=== PATIENT | male | born 1990 | race Two or more races ===

== ENCOUNTER 2021-04-19 14:25 | Emergency (ER) | payer SELFPAY ==
[2021-04-19 14:26] VITALS: BP 149/87; PULSE 123; RESP 20; TEMP 37; O2SAT 94; BMI 33.0
--- NOTE | 2021-04-19 14:54 | HMH.EDGENADL ---
ED Disposition Instructions: DI for Acute Abdominal Pain Referrals: Provider,Presley, [Primary Care Provider] - Attestation: On 04/19/21, the high probability of a clinically significant, sudden or life threatening deterioration of the following system(s) required my full and direct attention, intervention and personal management. The time I documented below is in addition to time spent performing reported procedures but includes the following listed in this critical care notation. Medical Decision Making Vital Signs: 04/19/21 14:26 Temperature 98.6 F Temperature Source Oral Pulse Rate [Right] 123 H Respiratory Rate 20 Blood Pressure [Right Arm] 149/87 H Blood Pressure Mean [Right Arm] 107 02 Sat by Pulse Oximetry 94 L Oxygen Delivery Method Room Air Orders (Tests/Meds): ORDERS Category Date Time Status Complete Blood Count Auto Diff Stat Lab 04/19/21 14:41 Ordered Comprehensive Metabolic Panel Stat Lab 04/19/21 14:41 Ordered Lipase Stat Lab 04/19/21 14:41 Ordered General Adult HPI - General Chief complaint: Abdominal Pain Stated complaint: abd pain Time Seen by Provider: 04/19/21 14:54 Mode of Arrival: EMS Limitations: No Limitations Description of Symptoms (Recalled from ER Triage Doc. by RN): pt c/o RUQ pain x3 days, states he has been vomiting blood for the past 2 days with diarrhea x5 days. Hx cirrhosis, admits to ETOH use this morning (4 beers & whiskey) - Related Data Allergies Allergy/AdvReac Type Severity Reaction Status Date / Time No Known Allergies Allergy Verified 04/19/21 14:37 [facility] History - Hepatitis A Screen Drug use history?: No High risk sexual behaviors?: No History of sexually transmitted infection?: No Currently employed?: No Childcare worker?: No Do you have indoor plumbing?: Yes Do you have electricity?: Yes Attestation statement:: This patient has been screened for Hepatitis A risk factors.
--- NOTE | 2021-04-19 14:58 | PC.NURSE ---
PT APPROACHED NURSES STATION, STATING HE FEELS BETTER & WANTS TO GO HOME. DR. SANZ AWARE, PT SIGNED AMA PAPERWORK.
[2021-04-19 15:04] VITALS: BP 149/87; PULSE 123; RESP 18; TEMP 37; O2SAT 94
== END 2021-04-19 15:07 | disposition left against medical advice (07) ==
PROVIDERS: Emergency Provider Emergency Medicine
DX: Z53.21 Procedure and treatment not carried out due to patient leaving prior to being seen by health care provider (principal)
CPT/HCPCS: 99211

== ENCOUNTER 2021-04-21 11:40 | Emergency (ER) | payer SELFPAY ==
[2021-04-21 11:41] VITALS: BP 132/80; PULSE 130; RESP 18; TEMP 37.1; O2SAT 94; BMI 29.2
[2021-04-21 12:12] LABS: Basophils # 0.1 K/mm3 (0-0.2); Basophils % 0.9 % (0.1-2.0); Eosinophils % 0.4 % (0.1-12.0); Hematocrit 44.8 % (42.0-52.0); Hemoglobin 15.2 g/dL (14.1-18.0); Lymphocytes # 2.9 K/mm3 (0.7-4.5); Lymphocytes % 30.4 % (10-50); Mean Corpuscular HGB Conc 33.9 g/dL (31.8-35.4); Mean Corpuscular Volume 79.7 fl (80-94); Mean Platelet Volume 8.1 fl (7.4-10.4); Monocytes # 0.5 K/mm3 (0.1-1.0); Monocytes % 5.6 % (1.7-9.3); Neutrophils # 6.1 K/mm3 (1.8-7.8); Neutrophils % 62.7 % (37.0-80.0); Platelet Count 325 K/mm3 (142-424); Red Blood Count 5.62 M/mm3 (4.60-6.20); Red Cell Distribution Width 14.4 % (11.5-17.5); White Blood Count 9.7 K/mm3 (4.8-10.8)
[2021-04-21 12:13] LABS: Chloride 96 mmol/L (98-107); Sodium 140 mmol/L (136-145)
[2021-04-21 12:16] LABS: Alanine Aminotransferase 89 U/L (12-78); Alkaline Phosphatase 179 U/L (38-126); Aspartate Amino Transferase 98 U/L (17-59); Bilirubin,Total 1.4 mg/dl (0.2-1.3); Calcium 9.6 mg/dl (8.4-10.2); Carbon Dioxide 24 mmol/L (22.0-30.0); Creatinine Clearance Estimated 148 mL/min (50-200); Estimated Glomerular Filt Rate 132 ml/min (>60); GFR (African American) 160 ML/MIN (>60); Glucose 167 mg/dl (74-100); Lipase 54 U/L (23-300)
[2021-04-21 12:17] LABS: Albumin Level 5.1 g/dl (3.5-5.0); Albumin/Globulin Ratio 1.3 (1.1-1.8); Total Protein,Serum 9.1 g/dl (6.3-8.2)
[2021-04-21 12:21] LABS: Blood Urea Nitrogen < 2 mg/dl (9-20)
--- NOTE | 2021-04-21 12:21 | PC.NURSE ---
lab called with critical potassium 3.0 dr lawton notified
--- NOTE | 2021-04-21 12:23 | CT_ITS ---
PROCEDURE: CT ABDOMEN PELVIS W CON CLINICAL INDICATION: states liver hurts, h/o cirrhosis COMPARISON: No exams were available for comparison TECHNIQUE: IV Contrast: 75ML Isovue 370 Oral Contrast None Axial images obtained with sagittal and coronal reformats. All CT scans at the facility use one or more dose reduction, viz: automated exposure control, ma/kV adjustment per patient size (including targeted exams where dose is matched to indication, i.e. head), or iterative reconstruction technique. FINDINGS: LOWER THORAX: No acute finding ABDOMEN & PELVIS: Hepatomegaly 25 cm transverse and 19 cm cephalad caudad with fatty liver. No focal liver lesions evident. There has been a prior cholecystectomy. There are stones within the cystic duct remnant. No intrahepatic biliary dilatation. Common bile duct is normal in caliber. The portal vein does not appear enlarged. Varices are present which beginning in the left femoral vein area and extend along the abdominal wall superiorly to the portal area. The spleen, adrenal glands have an unremarkable appearance. A 15 mm solid-appearing nodule is noted along the lateral aspect of the head of the pancreas between the pancreatic head and the duodenum. Nonemergent MRI of the pancreas suggested for further evaluation. No evidence of acute pancreatitis. Scattered small nodes are present in the mesenteries. No renal or ureteral calculi. No hydronephrosis. No evidence of appendicitis. No intestinal obstruction or free air. No pelvic mass or abnormal fluid collection. There is a small left inguinal hernia and a small umbilical hernia containing fat. Scattered small sclerotic foci are present in the right acetabulum, right femoral head, and proximal right femur suggesting small bone islands. IMPRESSION: 1. No acute finding. 2. Hepatomegaly with varices 3. Prior cholecystectomy with stones in the cystic duct 4. 15 mm solid-appearing nodule along the lateral aspect of the pancreatic head. Nonemergent MRI of the pancreas suggested for further evaluation. Dictated by: Ming Lorenzo MD 04/21/2021 13:40 Ming Lorenzo MD in [place] 04/21/2021 13:40
[2021-04-21 12:31] LABS: Ammonia 31 umol/L (9-30)
[2021-04-21 12:33] LABS: Ethyl Alcohol 299 mg/dl (0-10)
[2021-04-21 12:35] VITALS: BP 152/85; PULSE 132; RESP 18; O2SAT 96
--- NOTE | 2021-04-21 12:35 | HMH.EDGENADL ---
ED Disposition Clinical Impression: Alcoholism, Right upper quadrant pain, Hypokalemia Cirrhosis Qualifiers: Hepatic cirrhosis type: alcoholic cirrhosis Ascites presence: without ascites Qualified Code(s): K70.30 - Alcoholic cirrhosis of liver without ascites Disposition: Home, Self-Care Condition on Discharge: Fair Instructions: DI for Alcohol Use Disorder, DI for Cirrhosis, DI for Abdominal Pain-Adult, DI for Hypokalemia Additional Instructions: Follow-up with [facility] liver clinic, call for appointment. You are being provided with a list of physicians available for follow-up of your condition. Please call a physician on this list to arrange a follow-up appointment as soon as possible. Potassium and Protonix as prescribed. Zofran as needed for nausea and vomiting. Prescriptions: Potassium Chloride [K-Tab ER 20 mEq] 20 meq PO DAILY #7 tab Prescription Printed Pantoprazole Sodium [Protonix 40mg tablet] 40 mg PO DAILY #14 tab Prescription Printed Ondansetron [Zofran 4mg ODT] 4 mg PO TIDP PRN #10 tab PRN Reason: Nausea And Vomiting Prescription Printed Referrals: Provider,Referral, MD [Primary Care Provider] - - Critical Care Critical Care Time: No Attestation: On 04/21/21, the high probability of a clinically significant, sudden or life threatening deterioration of the following system(s) required my full and direct attention, intervention and personal management. The time I documented below is in addition to time spent performing reported procedures but includes the following listed in this critical care notation. Medical Decision Making - Medical Records Medical records reviewed: Yes: I reviewed the patient's medical records. MR Comment: Reviewed [facility] records. Last visit there was admission 11/02/2020 through 11/05/2020 for cholecystitis, he had laparoscopic cholecystectomy. Noted in his records that he has a prior history of esophageal varices, status post banding. - Juan F Inquiry Pt receiving controlled substance: No Juan F was queried for this patient: Yes Vital Signs: 04/21/21 11:41 Temperature 98.8 F Temperature Source Oral Pulse Rate [Right Radial] 130 H Respiratory Rate 18 Blood Pressure [Right Arm] 132/80 Blood Pressure Mean [Right Arm] 97 Blood Pressure Source [Right Arm] Automatic Cuff Blood Pressure Position [Right Arm] Sitting 02 Sat by Pulse Oximetry 94 L Oxygen Delivery Method Room Air - Lab Data Lab Results 04/21/21 12:00: WBC 9.7, RBC 5.62, Hgb 15.2, Hct 44.8, MCV 79.7 L, MCH 27.0, MCHC 33.9, RDW 14.4, Plt Count 325, MPV 8.1, Neut % (Auto) 62.7, Lymph % (Auto) 30.4, [place] % (Auto) 5.6, Eos % (Auto) 0.4, Baso % (Auto) 0.9, Neut # (Auto) 6.1, Lymph # (Auto) 2.9, [place] # (Auto) 0.5, Eos # (Auto) 0.0, Baso # (Auto) 0.1 04/21/21 12:00: Sodium 140, Potassium 3.0 L, Chloride 96 L, Carbon Dioxide 24, Anion Gap 23.0 H, BUN < 2 L, Creatinine 0.70, Estimated Creat Clear 148, Estimated GFR 132, Est GFR ( Amer) 160, Glucose 167 H, Calcium 9.6, Total Bilirubin 1.4 H, AST 98 H, ALT 89 H, Alkaline Phosphatase 179 H, Total Protein 9.1 H, Albumin 5.1 H, Globulin 4.0 H, Albumin/Globulin Ratio 1.3, Lipase 54 04/21/21 12:00: Ammonia 31 H 04/21/21 12:00: PT 11.4, INR 0.96 04/21/21 12:00: Plasma/Serum Alcohol 299 H 04/21/21 12:00: Troponin I < 0.01 04/21/21 12:30: Stool Occult Blood Negative 04/21/21 12:35: Urine Color Yellow, Urine Appearance Clear, Urine pH 6.5, Ur Specific [place] 1.010, Urine Protein 1+, Urine Glucose (UA) Negative, Urine Ketones Negative, Urine Blood Trace-i, Urine Nitrate Negative, Urine Bilirubin Negative, Urine Urobilinogen 0.2, Ur Leukocyte Esterase Negative, Urine RBC Occasional, Urine WBC 3-5, Ur Squamous Epith Cells Occasional, Urine Bacteria None 04/21/21 13:15: SARS-CoV-2 (PCR) Not detected, Influenza A Untype (PCR) Not detected, Influenza Type B (PCR) Not detected Result diagrams: 04/21/21 12:00 04/21/21 12:00 Order
[2021-04-21 12:36] LABS: Prothrombin Time 11.4 seconds (10.1-12.5)
[2021-04-21 12:38] LABS: Occult Blood,Stool Negative (Negative)
[2021-04-21 12:41] LABS: Microscopic, Urine URINE MICROSCOPIC (MICROSCOPIC)
--- NOTE | 2021-04-21 12:41 | PC.NURSE ---
RECTAL EXAM PER DR SANZ WITH FEMALE NURSE PRESENT
[2021-04-21 12:42] LABS: INR 0.96 (0.9-1.1)
[2021-04-21 12:43] LABS: Appearance,Urine CLEAR (Clear); Bilirubin,Urine Negative (Negative); Blood, Urine TRACE-I (Negative); Color,Urine YELLOW (Yellow); Glucose,Urine (UA) Negative (Negative); Ketones,Urine Negative (Negative); Leukocyte Esterase,Urine Negative (Negative); Nitrate,Urine Negative (Negative); PH,Urine 6.5 (5.0-8.5); Protein,Urine 1+ (Negative); Urobilinogen,Urine 0.2 EU/dl (0.2)
--- NOTE | 2021-04-21 12:44 | PC.NURSE ---
PT GOING TO ct
[2021-04-21 12:51] LABS: Troponin I < 0.01 ng/ml (0.00-0.034)
[2021-04-21 12:53] LABS: RBC,Urine Occasional #/hpf (0-3); Squamous Epithelial Cell,Urine Occasional #/hpf (0-5)
[2021-04-21 13:14] VITALS: BP 108/67; PULSE 98; RESP 15; O2SAT 86
--- NOTE | 2021-04-21 13:22 | ECG_ITS ---
APPROVED REPORT Exam: Resting ECG HR:112 bpm ECG Measurements Heart Rate 112 AXES MA 130 P 49 QRSd 86 QRS 19 QT 392 T 31 QTc 535 Conclusion Sinus tachycardia Otherwise normal ECG Electronically signed by : Sumeet Mauro MD 04/25/2021 21:05:26
[2021-04-21 13:30] VITALS: BP 121/82; PULSE 105; RESP 16; O2SAT 96
[2021-04-21 13:39] LABS: Coronavirus 19, PCR Not Detected (NotDetected); Influenza A, PCR Not Detected (NotDetected); Influenza B, PCR Not Detected (NotDetected)
[2021-04-21 14:00] VITALS: BP 115/66; PULSE 113; RESP 16; O2SAT 94
[2021-04-21 15:00] VITALS: BP 115/66; PULSE 115; RESP 18; TEMP 37.1; O2SAT 96
== END 2021-04-21 15:00 | disposition home or self-care (01) ==
PROVIDERS: Emergency Provider Emergency Medicine
DX: K70.30 Alcoholic cirrhosis of liver without ascites (principal); F10.20 Alcohol dependence, uncomplicated; E87.6 Hypokalemia; Z20.822 Contact with and (suspected) exposure to COVID-19
CPT/HCPCS: 74177; 80053; 81001; 82140; 82272; 83690; 84484; 85025; 85610; 93005; 96365; 96375; 99284; G0328; J2405; Q9967; U0003

== ENCOUNTER 2021-11-09 13:24 | Observation (INO) | payer SELFPAY ==
[2021-11-09] VITALS (11 sets, daily range): BP systolic 100–130; BP diastolic 57–87; PULSE 85–99; RESP 15–18; TEMP 37.1–37.2; O2SAT 93–100; BMI 29.0
--- NOTE | 2021-11-09 16:38 | HMH.EDGENADL ---
ED Disposition Clinical Impression: Rectal bleeding, Alcoholism Hematemesis Qualifiers: Nausea presence: with nausea Qualified Code(s): K92.0 - Hematemesis Abdominal pain Qualifiers: Abdominal location: epigastric Qualified Code(s): R10.13 - Epigastric pain Alcoholic cirrhosis Qualifiers: Ascites presence: without ascites Qualified Code(s): K70.30 - Alcoholic cirrhosis of liver without ascites Disposition: Admitted as Observation Condition on Discharge: Fair Referrals: Provider,Referral, [Primary Care Provider] - - Critical Care Critical Care Time: No Attestation: On 11/09/21, the high probability of a clinically significant, sudden or life threatening deterioration of the following system(s) required my full and direct attention, intervention and personal management. The time I documented below is in addition to time spent performing reported procedures but includes the following listed in this critical care notation. Medical Decision Making - Juan F Inquiry Pt receiving controlled substance: Yes Juan F was queried for this patient: Yes Risks and benefits of using a controlled substance: were not discussed with pt by me Vital Signs: 11/09/21 16:36 11/09/21 17:00 11/09/21 18:30 Temperature 98.7 F Temperature Source Oral Pulse Rate 96 H 92 H 91 H Pulse Rate [Left Radial] 95 H Respiratory Rate 16 15 Blood Pressure 130/87 128/70 114/65 Blood Pressure [Right Arm] 128/86 Blood Pressure Mean 96 87 Blood Pressure Mean [Right Arm] 100 02 Sat by Pulse Oximetry 98 93 L 100 Oxygen Delivery Method Room Air - Lab Data Lab Results 11/09/21 16:25: WBC 10.8, RBC 5.07, Hgb 13.6 L, Hct 40.6 L, MCV 80.0, MCH 26.8 L, MCHC 33.5, RDW 15.0, Plt Count 207, MPV 9.8, Neut % (Auto) 61.4, Lymph % (Auto) 30.1, [place] % (Auto) 7.4, Eos % (Auto) 0.2, Baso % (Auto) 0.9, Neut # (Auto) 6.6, Lymph # (Auto) 3.3, [place] # (Auto) 0.8, Eos # (Auto) 0.0, Baso # (Auto) 0.1 11/09/21 16:25: Sodium 143, Potassium 3.7, Chloride 103, Carbon Dioxide 29, Anion Gap 14.7, BUN 16, Creatinine 0.70, Estimated Creat Clear 177, Estimated GFR 132, Est GFR ( Amer) 159, Glucose 94, Calcium 9.1, Total Bilirubin 1.0, Direct Bilirubin 0.3, Conjugated Bilirubin 0.0, Indirect Bilirubin 0.7, Unconjugated Bilirubin 0.6, AST 66 H, ALT 149 H, Alkaline Phosphatase 128 H, Total Protein 8.1, Albumin 4.7, Globulin 3.4 H, Albumin/Globulin Ratio 1.4 11/09/21 16:25: Lipase 73 11/09/21 16:25: PT 11.5, INR 1.02, APTT 27.3 11/09/21 16:25: Plasma/Serum Alcohol < 10 11/09/21 17:10: Stool Occult Blood Negative 11/09/21 19:30: Urine Color Yellow, Urine Appearance Clear, Urine pH 6.0, Ur Specific [place] >= 1.030, Urine Protein Negative, Urine Glucose (UA) Negative, Urine Ketones Negative, Urine Blood Negative, Urine Nitrate Negative, Urine Bilirubin Negative, Urine Urobilinogen 0.2, Ur Leukocyte Esterase Negative Result diagrams: 11/09/21 16:25 11/09/21 16:25 Orders (Tests/Meds): ED MEDICATIONS Generic Name Dose Route Start Last Admin Trade Name Freq PRN Reason Stop Dose Admin Sodium Chloride 1,000 mls @ 150 mls/hr 11/09/21 20:30 Sod Chlor 0.9% 1000ml Bag IV 12/09/21 20:29 .[id number] TEODORA Pantoprazole Sodium 40 mg 11/09/21 21:00 Pantoprazole 40mg Vial IV 12/09/21 20:59 BID TEODORA Sodium Chloride 10 ml 11/09/21 16:40 Sodium Chloride 0.9% 10ml Flush Syringe IV 12/09/21 16:39 NEEDED PRN Maintain IV Site Sodium Chloride 10 ml 11/09/21 17:53 Sodium Chloride 0.9% 10ml Vial IV 12/09/21 17:52 NEEDED PRN dilute protonix Sucralfate 1 gm 11/09/21 21:00 Sucralfate 1gm/10ml Susp Udc PO 12/09/21 20:59 ACHS TEODORA Discontinued Medications Generic Name Dose Route Start Last Admin Trade Name Freq PRN Reason Stop Dose Admin Morphine Sulfate 4 mg 11/09/21 17:52 11/09/21 18:01 Morphine 4mg/Ml Syringe IV 11/09/21 17:53 4 mg ONCE ONE Administration Ondansetron HCl 4 mg 11/09/21 1
--- NOTE | 2021-11-09 16:40 | CT_ITS ---
PROCEDURE INFORMATION: Exam: CT Abdomen And Pelvis Without Contrast Exam date and time: 11/09/2021 5:03 PM Age: 31 years old Clinical indication: Abdominal pain; Generalized; Additional info: Abd pain TECHNIQUE: Imaging protocol: Computed tomography of the abdomen and pelvis without contrast. Total images: 347 Radiation optimization: All CT scans at this facility use at least one of these dose optimization techniques: automated exposure control; mA and/or kV adjustment per patient size (includes targeted exams where dose is matched to clinical indication); or iterative reconstruction. COMPARISON: CT ABDOMEN PELVIS W CON 04/21/2021 12:52 PM FINDINGS: Lungs: Visualized lung bases are clear. Heart: Heart size normal. Mediastinal space: Slightly thickened appearance of the distal esophageal wall may relate to mild esophagitis or varices. Consider nonemergent endoscopic assessment or esophagram as clinically indicated. Liver: Slightly irregular liver contour may represent mild changes of cirrhosis. Previous hepatomegaly on 04/21/2021 has resolved, now normal size. No mass lesions. No intrahepatic biliary ductal dilatation. Gallbladder and bile ducts: Prior cholecystectomy with no significant dilatation of the common bile duct. Pancreas: Normal. No inflammatory changes or ductal dilation. Spleen: Borderline splenomegaly measuring 13.5 cm maximum dimension. Adrenal glands: Normal. No adrenal mass. Kidneys and ureters: No acute abnormalities. No hydronephrosis or hydroureter. No urinary tract stones are identified. Stomach and bowel: The stomach is largely contracted without gross abnormality. The small bowel is nondilated with no gross abnormality. No acute colonic abnormalities. Appendix: The appendix is normal in caliber and demonstrates no evidence of appendicitis. Intraperitoneal space: No free fluid or air. Vasculature: Recanalized periumbilical veins again noted with portosystemic shunting in the left inferior epigastric distribution. Small gastroesophageal varices again noted. Lymph nodes: No adenopathy. Urinary bladder: Unremarkable as visualized. Reproductive: Unremarkable as visualized. Bones/joints: No acute osseous abnormalities. Soft tissues: Small fatty umbilical hernia and small fatty left inguinal hernia. No evidence of associated bowel herniation or strangulation. IMPRESSION: 1. No acute process is evident. 2. Slight liver contour irregularity suspicious for cirrhosis. The previous hepatomegaly on 04/21/2021 has resolved, now normal size. No focal hepatic lesions. 3. Borderline splenomegaly with recanalized periumbilical veins and small gastroesophageal varices suggesting an element of chronic portal hypertension and portosystemic shunting. No ascites. 4. Mild thickening of the distal esophageal wall could relate to varices or mild changes of esophagitis, consider nonemergent endoscopic assessment or esophagram as clinically indicated. 5. Additional nonemergent findings detailed above.
[2021-11-09 16:51] LABS: Basophils # 0.1 K/mm3 (0-0.2); Basophils % 0.9 % (0.1-2.0); Eosinophils % 0.2 % (0.1-12.0); Hematocrit 40.6 % (42.0-52.0); Hemoglobin 13.6 g/dL (14.1-18.0); Lymphocytes # 3.3 K/mm3 (0.7-4.5); Lymphocytes % 30.1 % (10-50); Mean Corpuscular HGB Conc 33.5 g/dL (31.8-35.4); Mean Corpuscular Hemoglobin 26.8 pg (27.0-31.2); Mean Platelet Volume 9.8 fl (7.4-10.4); Monocytes # 0.8 K/mm3 (0.1-1.0); Monocytes % 7.4 % (1.7-9.3); Neutrophils # 6.6 K/mm3 (1.8-7.8); Neutrophils % 61.4 % (37.0-80.0); Platelet Count 207 K/mm3 (142-424); Red Blood Count 5.07 M/mm3 (4.60-6.20); White Blood Count 10.8 K/mm3 (4.8-10.8)
[2021-11-09 16:59] LABS: Activated Partial Thrombo Time 27.3 seconds (22.8-30.6); INR 1.02 (0.9-1.1); Prothrombin Time 11.5 seconds (10.1-12.5)
[2021-11-09 17:04] LABS: Alanine Aminotransferase 149 U/L (12-78); Albumin Level 4.7 g/dl (3.5-5.0); Albumin/Globulin Ratio 1.4 (1.1-1.8); Alkaline Phosphatase 128 U/L (38-126); Anion Gap 14.7 mEq/L (5-15); Aspartate Amino Transferase 66 U/L (17-59); Bilirubin,Direct 0.3 mg/dl (0.0-0.4); Bilirubin,Indirect 0.7 mg/dL (0.0-0.9); Bilirubin,Unconjugated 0.6 mg/dL (0.0-1.1); Blood Urea Nitrogen 16 mg/dl (9-20); Calcium 9.1 mg/dl (8.4-10.2); Carbon Dioxide 29 mmol/L (22.0-30.0); Chloride 103 mmol/L (98-107); Creatinine Clearance Estimated 177 mL/min (50-200); Estimated Glomerular Filt Rate 132 ml/min (>60); GFR (African American) 159 ML/MIN (>60); Globulin 3.4 g/dL (1.3-3.2); Glucose 94 mg/dl (74-100); Potassium 3.7 mmoL/L (3.5-5.1); Sodium 143 mmol/L (136-145); Total Protein,Serum 8.1 g/dl (6.3-8.2)
[2021-11-09 17:05] LABS: Lipase 73 U/L (23-300)
[2021-11-09 18:01] LABS: Ethyl Alcohol < 10 mg/dl (0-10)
[2021-11-09 18:06] LABS: Occult Blood,Stool Negative (Negative)
--- NOTE | 2021-11-09 18:10 | PC.NURSE ---
Updated pt on POC. No new needs at this time.
[2021-11-09 19:32] LABS: Microscopic, Urine URINE MICROSCOPIC (MICROSCOPIC)
--- NOTE | 2021-11-09 20:10 | PC.NURSE ---
Dr. Rangel s/w Dr. Mauro for possible admit.
--- NOTE | 2021-11-09 20:15 | PC.NURSE ---
mill platform supervisor notified on the need for bed assignment. No beds at this time, pt will be boarding in ED.
[2021-11-09 20:40] LABS: Appearance,Urine CLEAR (Clear); Bilirubin,Urine Negative (Negative); Blood, Urine Negative (Negative); Color,Urine YELLOW (Yellow); Glucose,Urine (UA) Negative (Negative); Ketones,Urine Negative (Negative); Leukocyte Esterase,Urine Negative (Negative); Nitrate,Urine Negative (Negative); Protein,Urine Negative (Negative); Specific Gravity, Urine >= 1.030 (1.005-1.030); Urobilinogen,Urine 0.2 EU/dl (0.2)
[2021-11-09 20:46] LABS: Coronavirus 19, PCR Not Detected (NotDetected); Influenza A, PCR Not Detected (NotDetected); Influenza B, PCR Not Detected (NotDetected)
[2021-11-09 20:55] LABS: Bacteria,Urine 1+ /lpf; RBC,Urine Occasional #/hpf (0-3); Squamous Epithelial Cell,Urine Occasional #/hpf (0-5)
[2021-11-09 20:59] LABS: Lactic Acid 1.1 mmol/L (0.7-2.1)
--- NOTE | 2021-11-09 21:30 | PC.NURSE ---
Pt resting comfortably, no new concerns. Comfortable at this time. Agrees with admission, pt educated he will be boarding in ED.
--- NOTE | 2021-11-09 22:46 | HMH.PHAVTE ---
[facility] Pharmacy VTE Monitoring - Patient Demographics Admission date: 11/09/21 Report Date: 11/09/21 Time: 22:46 Allergies/Adverse Reactions: Patient Allergies No Known Allergies Allergy (Verified 04/19/21 14:37) Height: 1.68 m Weight: 81.647 kg Patient Problems: Current Active Problems Abdominal pain (Acute) Alcoholism (Acute) Hematemesis (Acute) Rectal bleeding (Acute) Alcoholic cirrhosis (Acute) - VTE Risk Labs: VTE Related Lab Results Hgb 13.6 g/dL (14.1-18.0) L 11/09/21 16:25 Hct 40.6 % (42.0-52.0) L 11/09/21 16:25 Plt Count 207 K/mm3 (142-424) 11/09/21 16:25 PT 11.5 seconds (10.1-12.5) 11/09/21 16:25 INR 1.02 (0.9-1.1) 11/09/21 16:25 APTT 27.3 seconds (22.8-30.6) 11/09/21 16:25 BUN 16 mg/dl (9-20) 11/09/21 16:25 Creatinine 0.70 mg/dl (0.66-1.25) 11/09/21 16:25 Estimated Creat Clear 177 mL/min (50-200) 11/09/21 16:25 Clinical Trial Participant: No - Prophylaxis VTE Prophylaxis Ordered?: Yes Types of VTE Prophylaxis: TEDS Knee High
--- NOTE | 2021-11-09 23:45 | PC.NURSE ---
Pt moved from stretcher to hospital bed, and made comfortable. Emptied urinal.
--- NOTE | 2021-11-10 01:34 | PC.NURSE ---
Pt check- Pt states he is doing good . No needs at this time.
[2021-11-10 04:04] VITALS: BP 113/53; PULSE 85; O2SAT 99
--- NOTE | 2021-11-10 04:08 | PC.NURSE ---
Pt 0400 vital obtained. Pt resting well. No complaints.
[2021-11-10 05:15] LABS: Basophils # 0.1 K/mm3 (0-0.2); Basophils % 0.9 % (0.1-2.0); Eosinophils # 0.1 K/mm3 (0.0-0.4); Eosinophils % 0.8 % (0.1-12.0); Hemoglobin 12.6 g/dL (14.1-18.0); Lymphocytes # 3.6 K/mm3 (0.7-4.5); Lymphocytes % 42.4 % (10-50); Mean Corpuscular HGB Conc 33.2 g/dL (31.8-35.4); Mean Corpuscular Hemoglobin 26.9 pg (27.0-31.2); Mean Platelet Volume 9.6 fl (7.4-10.4); Monocytes # 0.5 K/mm3 (0.1-1.0); Monocytes % 5.6 % (1.7-9.3); Neutrophils # 4.3 K/mm3 (1.8-7.8); Neutrophils % 50.4 % (37.0-80.0); Platelet Count 172 K/mm3 (142-424); Red Blood Count 4.69 M/mm3 (4.60-6.20); White Blood Count 8.6 K/mm3 (4.8-10.8)
--- NOTE | 2021-11-10 05:18 | PC.NURSE ---
LABS OBTAINED. PT DENIES PAIN OR NAUSEA AT THIS TIME. NO ACUTE DISTRESS NOTED OR REPORTED.
[2021-11-10 05:23] LABS: Amphetamine/Metha Screen,Urine Negative ng/ml (<1000)
[2021-11-10 05:24] LABS: Barbiturates Screen,Urine Negative ng/ml (<200); Benzodiazepines Screen,Urine Negative ng/ml (<200)
[2021-11-10 05:25] LABS: Cannabinoid Screen,Urine Negative ng/ml (<50); Cocaine Screen,Urine Positive ng/ml (<300)
[2021-11-10 05:26] LABS: Methadone Screen,Urine Negative ng/ml (<300)
[2021-11-10 05:27] LABS: Opiate Screen,Urine Positive ng/ml (<300); Phencyclidine Screen,Urine Negative ng/ml (<25)
[2021-11-10 05:29] LABS: Anion Gap 9.6 mEq/L (5-15); Blood Urea Nitrogen 12 mg/dl (9-20); Carbon Dioxide 28 mmol/L (22.0-30.0); Chloride 106 mmol/L (98-107); Creatinine Clearance Estimated 177 mL/min (50-200); Estimated Glomerular Filt Rate 132 ml/min (>60); GFR (African American) 159 ML/MIN (>60); Glucose 100 mg/dl (74-100); Phosphorous 3.7 mg/dl (2.5-4.5); Potassium 3.6 mmoL/L (3.5-5.1); Sodium 140 mmol/L (136-145)
--- NOTE | 2021-11-10 07:50 | PC.NURSE ---
pt sleeping, breakfast tray at BS for when pt wakes up
--- NOTE | 2021-11-10 07:50 | PC.NURSE ---
pt has a tray but is sleeping
--- NOTE | 2021-11-10 08:15 | PC.NURSE ---
Spoke with Dr. Mauro regarding bed status. stated he would round in ED where patient is boarding and discharge him from there. Notified Delphine Kirkland RN
--- NOTE | 2021-11-10 08:55 | PC.NURSE ---
Dr. Mauro at
--- NOTE | 2021-11-10 09:08 | HMH.HPDC ---
General - General Admission date:: 11/09/21 Discharge date: 11/10/21 *Admission Date: 11/09/21 *Chief complaint: Abdominal pain/vomiting *History of present illness: 31-year-old male with long history of alcohol abuse and esophageal irritation and abdominal pain who was admitted at [facility] in May of last year with vomiting and hematemesis, diagnosed with portal hypertension, alcoholic cirrhosis and esophageal varices which were banded at some point last year. He has been doing well but unfortunately is continued to drink alcohol heavily and came to the emergency department with a chief complaint of abdominal pain and vomiting and is worried that his liver is hurting. He was watched in the ER, he had a lot of abdominal pain and wished to be observed, he was placed in observation status overnight. [facility] History I have reviewed the patient's past medical history: Yes Medical History: Reports:: Anxiety *Have you ever received a pneumonia vaccine?: No *Have you received a flu vaccine this season?: No Comment:: Chronic alcoholism. Esophagitis. Portal hypertension. Liver cirrhosis. History of esophageal varices - *Social History Last grade of school completed: High school graduate Smoking Status: Light tobacco smoker Alcohol Intake: current Alcohol Intake Frequency:: 3 or more drinks per day Substance Use Type: denies use *Occupational Status:: employed *Travel in the last 8 weeks: None Family Hx:: Unable to obtain Review of Systems - Review of Systems Review of systems:: pertinent systems reviewed and negative unless documented below Exam Vital signs and Labs for Last 24 Hours: Temp Pulse Resp BP Pulse Ox 98.9 F 85 18 113/53 L 99 11/09/21 19:01 11/10/21 04:04 11/09/21 20:00 11/10/21 04:04 11/10/21 04:04 Laboratory Results - last 24 hr 11/09/21 16:25: WBC 10.8, RBC 5.07, Hgb 13.6 L, Hct 40.6 L, MCV 80.0, MCH 26.8 L, MCHC 33.5, RDW 15.0, Plt Count 207, MPV 9.8, Neut % (Auto) 61.4, Lymph % (Auto) 30.1, [place] % (Auto) 7.4, Eos % (Auto) 0.2, Baso % (Auto) 0.9, Neut # (Auto) 6.6, Lymph # (Auto) 3.3, [place] # (Auto) 0.8, Eos # (Auto) 0.0, Baso # (Auto) 0.1 11/09/21 16:25: Sodium 143, Potassium 3.7, Chloride 103, Carbon Dioxide 29, Anion Gap 14.7, BUN 16, Creatinine 0.70, Estimated Creat Clear 177, Estimated GFR 132, Est GFR ( Amer) 159, Glucose 94, Calcium 9.1, Total Bilirubin 1.0, Direct Bilirubin 0.3, Conjugated Bilirubin 0.0, Indirect Bilirubin 0.7, Unconjugated Bilirubin 0.6, AST 66 H, ALT 149 H, Alkaline Phosphatase 128 H, Total Protein 8.1, Albumin 4.7, Globulin 3.4 H, Albumin/Globulin Ratio 1.4 11/09/21 16:25: Lipase 73 11/09/21 16:25: PT 11.5, INR 1.02, APTT 27.3 11/09/21 16:25: Plasma/Serum Alcohol < 10 11/09/21 17:10: Stool Occult Blood Negative 11/09/21 19:01: Lactate 1.1 11/09/21 19:30: Urine Color Yellow, Urine Appearance Clear, Urine pH 6.0, Ur Specific [place] >= 1.030, Urine Protein Negative, Urine Glucose (UA) Negative, Urine Ketones Negative, Urine Blood Negative, Urine Nitrate Negative, Urine Bilirubin Negative, Urine Urobilinogen 0.2, Ur Leukocyte Esterase Negative, Urine RBC Occasional, Urine WBC 3-5, Ur Squamous Epith Cells Occasional, Urine Bacteria 1+ 11/09/21 20:40: SARS-CoV-2 (PCR) Not detected, Influenza A Untype (PCR) Not detected, Influenza Type B (PCR) Not detected 11/10/21 00:00: Urine Opiates Screen Positive H, Urine Methadone Screen Negative, Ur Barbituates Screen Negative, Ur Phencyclidine Scrn Negative, Ur Amphetamines Screen Negative, U Benzodiazepines Scrn Negative, Urine Cocaine Screen Positive H, U Marijuana (THC) Screen Negative 11/10/21 05:00: WBC 8.6, RBC 4.69, Hgb 12.6 L, Hct 38.0 L, MCV 81.0, MCH 26.9 L, MCHC 33.2, RDW 15.0, Plt Count 172, MPV 9.6, Neut % (Auto) 50.4, Lymph % (Auto) 42.4, [place] % (Auto) 5.6, Eos % (Auto) 0.8, Baso % (Auto) 0.9, Neut # (Auto) 4.3, Lymph # (Auto) 3.6, [place] # (Auto) 0.5, Eos # (Auto) 0.1, Baso # (Auto) 0.1 11/10/21
--- NOTE | 2021-11-10 10:14 | PC.NURSE ---
Pharmacy at bedside
[2021-11-10 11:19] VITALS: BP 121/64; PULSE 81; RESP 17; TEMP 36.8; O2SAT 100
== END 2021-11-10 11:21 | disposition home or self-care (01) ==
LOC: ER 20:28 → 2ND 21:12
PROVIDERS: Admitting Provider Internal Medicine Adolescent Medicine; Emergency Provider Emergency Medicine; Visit Provider Internal Medicine Adolescent Medicine
DX: K70.30 Alcoholic cirrhosis of liver without ascites (principal); K92.0 Hematemesis; R10.13 Epigastric pain; Z20.822 Contact with and (suspected) exposure to COVID-19; F10.20 Alcohol dependence, uncomplicated; K76.6 Portal hypertension; Y90.0 Blood alcohol level of less than 20 mg/100 ml
CPT/HCPCS: 74176; 80048; 80053; 80076; 80305; 81001; 82272; 83605; 83690; 83735; 84100; 85025; 85610; 85730; 96365; 96366; 96375; 99285; C9803; G0328; G0378; J2405; U0003; U0005

== ENCOUNTER 2022-02-07 01:08 | Emergency (ER) | payer SELFPAY ==
[2022-02-07] VITALS (10 sets, daily range): BP systolic 108–185; BP diastolic 60–98; PULSE 89–115; RESP 18–19; TEMP 36.8–37.2; O2SAT 94–100; BMI 37.8
[2022-02-07 01:17] LABS: Appearance,Urine CLEAR (Clear); Bilirubin,Urine Negative (Negative); Blood, Urine Negative (Negative); Color,Urine YELLOW (Yellow); Glucose,Urine (UA) Negative (Negative); Ketones,Urine Negative (Negative); Leukocyte Esterase,Urine Negative (Negative); Microscopic, Urine URINE MICROSCOPIC (MICROSCOPIC); Nitrate,Urine Negative (Negative); PH,Urine 6.5 (5.0-8.5); Protein,Urine Negative (Negative); Specific Gravity, Urine <= 1.005 (1.005-1.030); Urobilinogen,Urine 0.2 EU/dl (0.2)
--- NOTE | 2022-02-07 01:26 | CT_ITS ---
PROCEDURE INFORMATION: Exam: CT Abdomen And Pelvis With Contrast Exam date and time: 02/07/2022 2:01 AM Age: 31 years old Clinical indication: Pain and condition or disease; Liver condition; Cirrhosis; Abdominal pain; Additional info: Abd pain, known cirrhosis TECHNIQUE: Imaging protocol: Computed tomography of the abdomen and pelvis with contrast. Radiation optimization: All CT scans at this facility use at least one of these dose optimization techniques: automated exposure control; mA and/or kV adjustment per patient size (includes targeted exams where dose is matched to clinical indication); or iterative reconstruction. Contrast material: ISOVUE; Contrast volume: 75 ml; Contrast route: IV; COMPARISON: CT ABDOMEN PELVIS WO CON 11/09/2021 5:03 PM FINDINGS: Liver: Nodular liver consistent with possible cirrhosis. There is diffuse low attenuation throughout the liver consistent with fatty infiltration. No masses. The liver is enlarged, measuring 19.3 cm. Gallbladder and bile ducts: The patient has had a cholecystectomy. Pancreas: Normal. No ductal dilation. Spleen: Normal. No splenomegaly. Adrenal glands: Normal. No mass. Kidneys and ureters: Normal. No hydronephrosis. Stomach and bowel: Unremarkable. No obstruction. No mucosal thickening. Appendix: No evidence of appendicitis. Intraperitoneal space: Unremarkable. No free air. No significant fluid collection. Vasculature: There has been recanalization of the umbilical vein and dilatation of the left inferior epigastric vein down to the common femoral vein. Lymph nodes: Unremarkable. No enlarged lymph nodes. Urinary bladder: Unremarkable as visualized. Reproductive: Unremarkable as visualized. Bones/joints: Unremarkable. No acute fracture. Soft tissues: There is a left inguinal hernia containing fat but no bowel. Small ventral hernia containing mesenteric fat but no bowel. IMPRESSION: Fatty liver and probable early cirrhosis with recanalization of the umbilical vein and left inferior epigastric vein. Status post cholecystectomy. Left inguinal and ventral hernias.
--- NOTE | 2022-02-07 01:28 | XR_ITS ---
PROCEDURE INFORMATION: Exam: XR Chest Exam date and time: 02/07/2022 2:19 AM Age: 31 years old Clinical indication: Cough TECHNIQUE: Imaging protocol: Radiologic exam of the chest. Views: 1 view. COMPARISON: CT ABDOMEN PELVIS W CON 02/07/2022 2:01 AM FINDINGS: Lungs: Unremarkable. No consolidation. Pleural spaces: Unremarkable. No pleural effusion. No pneumothorax. Heart/Mediastinum: Unremarkable. No cardiomegaly. Bones/joints: Unremarkable. IMPRESSION: No acute findings.
[2022-02-07 01:32] LABS: Bacteria,Urine Trace /lpf; WBC,Urine Occasional #/hpf (0-3)
[2022-02-07 01:33] LABS: Hemoglobin 14.4 g/dL (14.1-18.0); Red Blood Count 5.38 M/mm3 (4.60-6.20); White Blood Count 11.6 K/mm3 (4.8-10.8)
[2022-02-07 01:34] LABS: Basophils # 0.2 K/mm3 (0-0.2); Basophils % 1.8 % (0.1-2.0); Eosinophils # 0.1 K/mm3 (0.0-0.4); Eosinophils % 0.7 % (0.1-12.0); Hematocrit 41.7 % (42.0-52.0); Lymphocytes # 5.1 K/mm3 (0.7-4.5); Mean Corpuscular HGB Conc 34.5 g/dL (31.8-35.4); Mean Corpuscular Hemoglobin 26.7 pg (27.0-31.2); Mean Corpuscular Volume 77.6 fl (80-94); Mean Platelet Volume 8.5 fl (7.4-10.4); Monocytes # 0.7 K/mm3 (0.1-1.0); Monocytes % 5.9 % (1.7-9.3); Neutrophils # 5.5 K/mm3 (1.8-7.8); Neutrophils % 47.6 % (37.0-80.0); Platelet Count 263 K/mm3 (142-424); Red Cell Distribution Width 14.8 % (11.5-17.5)
[2022-02-07 01:42] LABS: Alanine Aminotransferase 67 U/L (12-78); Albumin Level 4.4 g/dl (3.5-5.0); Albumin/Globulin Ratio 1.3 (1.1-1.8); Alkaline Phosphatase 162 U/L (38-126); Anion Gap 18.2 mEq/L (5-15); Aspartate Amino Transferase 96 U/L (17-59); Bilirubin,Total 0.5 mg/dl (0.2-1.3); Blood Urea Nitrogen 6 mg/dl (9-20); Calcium 8.9 mg/dl (8.4-10.2); Carbon Dioxide 24 mmol/L (22.0-30.0); Chloride 101 mmol/L (98-107); Creatinine Clearance Estimated 216 mL/min (50-200); Estimated Glomerular Filt Rate 132 ml/min (>60); Ethyl Alcohol 293 mg/dl (0-10); GFR (African American) 159 ML/MIN (>60); Globulin 3.3 g/dL (1.3-3.2); Glucose 163 mg/dl (74-100); Potassium 3.2 mmoL/L (3.5-5.1); Sodium 140 mmol/L (136-145); Total Protein,Serum 7.7 g/dl (6.3-8.2)
[2022-02-07 01:47] LABS: C-Reactive Protein 3.9 mg/L (0-4)
--- NOTE | 2022-02-07 01:48 | HMH.EDNVD ---
ED Disposition Clinical Impression: Alcoholism Abdominal pain Qualifiers: Abdominal location: epigastric Qualified Code(s): R10.13 - Epigastric pain Disposition: Home, Self-Care Condition on Discharge: Fair Instructions: DI for Acute Abdominal Pain Additional Instructions: see pcp for follow up Referrals: Provider,Referral, [Primary Care Provider] - - Critical Care Critical Care Time: No Attestation: On 02/07/22, the high probability of a clinically significant, sudden or life threatening deterioration of the following system(s) required my full and direct attention, intervention and personal management. The time I documented below is in addition to time spent performing reported procedures but includes the following listed in this critical care notation. Medical Decision Making - Medical Records Medical records reviewed: Yes: I reviewed the patient's medical records. - Juan F Inquiry Pt receiving controlled substance: No Vital Signs: 02/07/22 01:09 02/07/22 01:31 02/07/22 02:33 Temperature 99 F Temperature Source Oral Pulse Rate 115 H 106 H Pulse Rate [Left Radial] 89 Respiratory Rate 18 Blood Pressure 138/60 108/74 L Blood Pressure [Right Arm] 130/88 Blood Pressure Mean [Right Arm] 102 02 Sat by Pulse Oximetry 100 100 98 Oxygen Delivery Method Room Air Room Air Room Air - Lab Data Lab results reviewed: Yes: I reviewed the patient's lab results. Lab Results 02/07/22 01:10: Urine Color Yellow, Urine Appearance Clear, Urine pH 6.5, Ur Specific [place] <= 1.005, Urine Protein Negative, Urine Glucose (UA) Negative, Urine Ketones Negative, Urine Blood Negative, Urine Nitrate Negative, Urine Bilirubin Negative, Urine Urobilinogen 0.2, Ur Leukocyte Esterase Negative, Urine WBC Occasional, Urine Bacteria Trace 02/07/22 01:26: WBC 11.6 H, RBC 5.38, Hgb 14.4, Hct 41.7 L, MCV 77.6 L, MCH 26.7 L, MCHC 34.5, RDW 14.8, Plt Count 263, MPV 8.5, Neut % (Auto) 47.6, Lymph % (Auto) 44.0, [place] % (Auto) 5.9, Eos % (Auto) 0.7, Baso % (Auto) 1.8, Neut # (Auto) 5.5, Lymph # (Auto) 5.1 H, [place] # (Auto) 0.7, Eos # (Auto) 0.1, Baso # (Auto) 0.2, ESR 13 02/07/22 01:26: Sodium 140, Potassium 3.2 L, Chloride 101, Carbon Dioxide 24, Anion Gap 18.2 H, BUN 6 L, Creatinine 0.70, Estimated Creat Clear 216, Estimated GFR 132, Est GFR ( Amer) 159, Glucose 163 H, Calcium 8.9, Total Bilirubin 0.5, AST 96 H, ALT 67, Alkaline Phosphatase 162 H, C-Reactive Protein 3.9, Total Protein 7.7, Albumin 4.4, Globulin 3.3 H, Albumin/Globulin Ratio 1.3, Procalcitonin 0.087, Salicylates < 1.0 L, Acetaminophen < 10 L 02/07/22 01:26: PT 11.4, INR 1.01 02/07/22 01:26: Ammonia 23 02/07/22 01:26: Plasma/Serum Alcohol 293 H Result diagrams: 02/07/22 01:26 02/07/22 01:26 Orders (Tests/Meds): ED MEDICATIONS Generic Name Dose Route Start Last Admin Trade Name Freq PRN Reason Stop Dose Admin Sodium Chloride 1,000 mls @ 999 mls/hr 02/07/22 01:30 02/07/22 02:57 Sod Chlor 0.9% 1000ml Bag IV 02/07/22 02:30 999 mls/hr .Q1H1M TEODORA Administration Multivitamins 10 ml/ Thiamine 1,015 mls @ 150 mls/hr 02/07/22 01:30 02/07/22 01:38 HCl 100 mg/ Magnesium Sulfate IV 02/07/22 08:15 150 mls/hr 2 gm/ Lactated Ringer's .[id number] TEODORA Administration Discontinued Medications Generic Name Dose Route Start Last Admin Trade Name Freq PRN Reason Stop Dose Admin Folic Acid 1 mg 02/07/22 01:28 02/07/22 01:39 Folic Acid 1mg Tablet PO 02/07/22 01:29 1 mg ONCE ONE Administration Iopamidol 75 ml 02/07/22 02:11 02/07/22 02:12 Iopamidol-370 (76%);100ml Bottle IV 02/07/22 02:12 75 ml ONCE ONE Administration Sodium Chloride 10 ml 02/07/22 02:11 02/07/22 02:11 Sodium Chloride 0.9% 10ml Syr (Rad Only) IV 02/07/22 02:12 10 ml ONCE ONE Administration ORDERS Category Date Time Status Lactic Acid Stat Lab 02/07/22 01:24 Ordered - Radiology Data #1 Image(s): Chest Image Reviewed: Yes I
[2022-02-07 01:51] LABS: Acetaminophen < 10 ug/ml (10-30); Salicylate < 1.0 mg/dL (2.0-20.0)
[2022-02-07 02:00] LABS: Procalcitonin 0.087 ng/mL (0.0-2.0)
[2022-02-07 02:06] LABS: Ammonia 23 umol/L (9-30)
[2022-02-07 02:11] LABS: Erythrocyte Sedimentation Rate 13 mm/hr (0-15)
[2022-02-07 02:17] LABS: INR 1.01 (0.9-1.1); Prothrombin Time 11.4 seconds (10.1-12.5)
--- NOTE | 2022-02-07 02:35 | PC.NURSE ---
PT ASSISTED WITH REPOSITIONING FOR COMFORT. URINAL EMPTIED. PT UPDATED WITH PLAN OF CARE AND WARM BLANKET PROVIDED. WILL CONTINUE TO MONITOR.
--- NOTE | 2022-02-07 03:29 | PC.NURSE ---
called radiology to check status on vrad reports
--- NOTE | 2022-02-07 04:35 | PC.NURSE ---
PT AWARE OF PLAN TO DISCHARGE AND IS UNABLE TO OBTAIN RIDE AT THIS TIME. NO COMPLAINTS VOICED. NO ACUTE DISTRESS NOTED.
== END 2022-02-07 06:32 | disposition home or self-care (01) ==
PROVIDERS: Emergency Provider Emergency Medicine
DX: F10.129 Alcohol abuse with intoxication, unspecified (principal); R10.13 Epigastric pain; F41.9 Anxiety disorder, unspecified; R11.0 Nausea; Y90.8 Blood alcohol level of 240 mg/100 ml or more
CPT/HCPCS: 71045; 74177; 80053; 80329; 81001; 82140; 84145; 85025; 85610; 85651; 86140; 96361; 96365; 96366; 99285; Q9967

== ENCOUNTER 2024-08-04 09:23 | Emergency (ER) | payer SELFPAY ==
[2024-08-04 09:35] VITALS: BP 129/82; PULSE 90; RESP 19; TEMP 37; O2SAT 98; BMI 34.9
[2024-08-04 09:54] LABS: UTC Strep Screen (Rapid) Positive (Negative)
--- NOTE | 2024-08-04 10:01 | ED_ITS ---
Discharge Plan Disposition Patient Disposition: Home, Self-Care Condition: Good Prescriptions Prescriptions: New benzonatate 100 mg capsule 100 mg PO TID PRN (Reason: cough) Qty: 30 0RF amoxicillin 875 mg tablet 875 mg PO Q12H Qty: 20 0RF No Action ondansetron 4 MG tablet,disintegrating 4 mg SL TIDP PRN (Reason: Nausea And Vomiting) 3 Days Qty: 12 0RF metformin 500 mg tablet 500 mg PO BID Patient Comments: TAKE 1 TABLET BY MOUTH TWICE DAILY WITH MEALS Referrals Follow up/Referrals: Provider,Referral, MD [Primary Care Provider] - See instructions Activity Restrictions/Add. Instructions Additional Instructions/Restrictions: *Monitor Temp, Over the counter Motrin or Tylenol as directed/as needed Tylenol every 4 hours and Motrin every 6 hours (as long as your family doctor has told you that you can take it) for fever or pain. and straight to ER if unable to lower temp less than 101.0 after medication given *Warm salt water gargles may help to soothe the throat *Throat Lozenges? *Warm fluids like tea with honey may help to soothe the throat? *Sleep elevated *Humidifier/Vaporizer *If you did not take Penicillin shot or was unable to, start taking antibiotic immediately and make sure that you take it for the FULL length of time although you should start to feel better in 24-48 hours *change toothbrush and toothpaste 24-48 hours after starting to take antibiotics so you do not reinfect yourself Monitor Temp. Tylenol and/or Ibuprofen as needed. ER if fever is no less than 101 despite alternating Tylenol and Ibuprofen * Encourage fluids, water, Gatorade, powerade, pedialyte if /toddler/or child *Cold fluids, popsicles and ice cream may feel good on his throat Follow up IMMEDIATELY for new or worsening symptoms or no Noticeable improvement over the next 48-72 hours. 911 for difficulty breathing or swallowing Clinical Impressions Clinical Impression: Strep throat Instructions Patient Instructions: DI for Strep Throat, Strep Throat Print Language Print Language: Puerto Rican Discharge ED Provider: Brianna Bonilla [facility] [place] General Stated complaint: sore throat, cough x 6 months Mode of Arrival: Ambulatory Source of Information: Patient Limitations: No Limitations Time Seen by Provider: 08/04/24 10:01 Description of Symptoms (Recalled from Triage Doc. by RN): PATIENT C/O COUGH AND SORE THROAT HEENT Symptoms (Recalled from RN notes): Yes Resp Symptoms (Recalled from RN notes): Yes Skin Symptoms (Recalled from RN notes): No MS Symptoms (Recalled from RN notes): No Functional Status (Recalled from RN notes): WNL History of Present Illness Provider Complaint: Patient states that he has been having cough and sore throat for several days and continued to get worse Related Data Home Medications ?Medication ?Instructions ?Recorded ?Confirmed metformin 500 mg tablet 500 mg PO BID 08/04/24 08/04/24 Previous Rx's ?Medication ?Instructions ?Recorded ondansetron 4 mg disintegrating 4 mg sublingual TIDP PRN Nausea 01/14/22 tablet And Vomiting 3 days #12 tabs amoxicillin 875 mg tablet 875 mg PO Q12H #20 tabs 08/04/24 benzonatate 100 mg capsule 100 mg PO TID PRN cough #30 caps 08/04/24 Allergies Allergy/AdvReac Type Severity Reaction Status Date / Time No Known Allergies Allergy Verified 08/04/24 10:00 Worker's Comp Is this a Worker's Comp case?: No [facility] Disclaimer: The information contained in this section may have been updated after the patient was seen, as this information can be updated by other users. Medical History (Updated 08/04/24 @ 10:08 by Brianna Bonilla APRN) No significant past medical history Social History (System 08/04/24 @ 10:00 by Eleonora Turner) Smoking Status: Light tobacco smoker alcohol intake: current alcohol intake frequency: 3 or more drinks per day substance use type: denies use current occupational status: employed Travel in the last 8 weeks: None Have you lived/traveled outside [place] in past 30 days?: No Contact w/someone who lives/traveled outside US past 30 days?: No Exposure to someone with infectious disease in past 14 days?: No Do you have a fever (greater than 100.4 F or 38 C)?: No Have you tested positive for COVID-19: No Exposed to someone with COVID-19 in past 14 days?: No Do you have a sore throat?: Yes Do you have a cough?: Yes Do you have any weakness?: No Do you have any diarrhea?: No Are you experiencing any unusual bleeding?: No Do you have any muscle aches/pain?: No Do you have any abdominal pain?: No Are you experiencing loss of taste or smell?: No ROS Obtained: Yes All systems reviewed & no additional complaints except as documented and Yes Systems reviewed as appropriate & no additional complaints except as documented Constitutional Constitutional: Reports system reviewed and no additional complaints, except as documented and Reports as per HPI ENT Ears, Nose, Mouth, and Throat: Reports system reviewed and no additional complaints, except as documented, Reports as per HPI and Reports sore throat Cardiovascular Cardiovascular: Reports system reviewed and no additional complaints, except as documented and Reports as per HPI Respiratory Respiratory: Reports system reviewed and no additional complaints, except as documented, Reports as per HPI and Reports cough Gastrointestinal Gastrointestingal: Reports system reviewed and no additional complaints, except as documented and as per HPI Physical Exam General General appearance: alert and in no apparent distress ENT ENT exam: Present mucous membranes moist Expanded ENT Exam Nose exam: Absent sinus tenderness Throat exam: Present tonsillar erythema and tonsillar exudate Respiratory Respiratory exam: Present normal lung sounds bilaterally; Absent respiratory distress or wheezes Cardiovascular Cardiovascular exam: Present regular rate, normal rhythm and normal heart sounds Abdominal Exam Abdominal exam: Present soft and normal bowel sounds; Absent distention or tenderness Neurological Exam Neurological exam: Present alert, oriented X3 and normal gait Medical Decision Making Medical Records Screening: Per USPSTF and CDC recommendations, given the prevalence of disease in our region, it is our hospital?s policy to screen for HIV and viral Hepatitis for all patients aged 18 and over and those with ongoing risk factors. Juan F Inquiry Pt receiving controlled substance: No Juan F was queried for this patient: No Vital Signs: 08/04/24 09:35 Temperature 98.6 F Temperature Source Oral Pulse Rate [Left Brachial] 90 Respiratory Rate 19 Blood Pressure [Left Arm] 129/82 Blood Pressure Mean [Left Arm] 97 Blood Pressure Source [Left Arm] Automatic Cuff Blood Pressure Position [Left Arm] Sitting 02 Sat by Pulse Oximetry 98 Oxygen Delivery Method Room Air Lab Data Lab results reviewed: Yes I reviewed the patient's lab results. Lab Results 08/04/24 09:40: Strep Scn [facility] Positive A
[2024-08-04 10:08] VITALS: BP 129/82; PULSE 90; RESP 19; TEMP 37; O2SAT 98
== END 2024-08-04 10:11 | disposition home or self-care (01) ==
PROVIDERS: Emergency Provider Nurse Practitioner
DX: J02.0 Streptococcal pharyngitis (principal)
CPT/HCPCS: 87880; 99213; G0381

== ENCOUNTER 2024-08-15 15:27 | Emergency (ER) | payer SELFPAY ==
[2024-08-15 16:40] VITALS: BP 108/61; PULSE 78; RESP 18; TEMP 36.8; O2SAT 99; BMI 34.1
--- NOTE | 2024-08-15 16:50 | ED_ITS ---
Discharge Plan Disposition Patient Disposition: Home, Self-Care Condition: Good Prescriptions Prescriptions: New azithromycin [Zithromax Z-Olu] 250 mg tablet See Rx Instructions .ROUTE .COMPLEX 5 Days Qty: 6 0RF Rx Instructions: For 250 mg dose pack: take 500 mg today (day 1), then 250 mg for 4 days (days 2-5) benzonatate 100 mg capsule 100 mg PO TID PRN (Reason: cough) Qty: 30 0RF Referrals Follow up/Referrals: Ai Wagoner [Primary Care Provider] - See instructions Activity Restrictions/Add. Instructions Additional Instructions/Restrictions: *Monitor Temp, Over the counter Motrin or Tylenol as directed/as needed Tylenol every 4 hours and Motrin every 6 hours (as long as your family doctor has told you that you can take it) for fever or pain. and straight to ER if unable to lower temp less than 101.0 after medication given *Warm salt water gargles may help to soothe the throat *Throat Lozenges? *Warm fluids like tea with honey may help to soothe the throat? *Sleep elevated *Humidifier/Vaporizer Your throat swab was sent for culture. Those results are typically sent to y our primary care. Be sure to follow up in 2-3 days with your family doctor/primary care physician if no improvement so they can review those result and treat if necessary. If you don?t have a primary care doctor, I recommend you get one but in the mean time, you will have to return to a walk in clinic Follow up IMMEDIATELY for new or worsening symptoms or no Noticeable improvement over the next 48-72 hours. 911 for difficulty breathing or swallowing Clinical Impressions Clinical Impression: Pharyngitis Instructions Patient Instructions: Sore Throat, Cough Print Language Print Language: Gabonese Discharge ED Provider: Brianna Bonilla [facility] [place] HPI General Stated complaint: sore throat, congestion Time Seen by Provider: 08/15/24 16:50 History of Present Illness Provider Complaint: Patient primarily Gabonese speaking but can speak limited Faroese and understand Faroese, States still having sore throat and congestion finished meds it helped but came back Related Data Previous Rx's ?Medication ?Instructions ?Recorded azithromycin 250 mg tablet See Rx Instructions PO .COMPLEX 5 08/15/24 (Zithromax Z-Olu) days #6 tabs benzonatate 100 mg capsule 100 mg PO TID PRN cough #30 caps 08/15/24 Allergies Allergy/AdvReac Type Severity Reaction Status Date / Time No Known Allergies Allergy Verified 08/04/24 10:00 [facility] Disclaimer: The information contained in this section may have been updated after the patient was seen, as this information can be updated by other users. Medical History (Updated 08/15/24 @ 17:08 by Brianna Bonilla APRN) No significant past medical history Social History (System 08/04/24 @ 10:00 by Eleonora Turner) Smoking Status: Light tobacco smoker alcohol intake: current alcohol intake frequency: 3 or more drinks per day substance use type: denies use current occupational status: employed Travel in the last 8 weeks: None Have you lived/traveled outside US in past 30 days?: No Contact w/someone who lives/traveled outside US past 30 days?: No Exposure to someone with infectious disease in past 14 days?: No Do you have a fever (greater than 100.4 F or 38 C)?: No Have you tested positive for COVID-19: No Exposed to someone with COVID-19 in past 14 days?: No Do you have a sore throat?: Yes Do you have a cough?: No Do you have any weakness?: No Do you have any diarrhea?: No Are you experiencing any unusual bleeding?: No Do you have any muscle aches/pain?: No Do you have any abdominal pain?: No Are you experiencing loss of taste or smell?: No ROS Obtained: Yes All systems reviewed & no additional complaints except as docu mented and Yes Systems reviewed as appropriate & no additional complaints except as documented Constitutional Constitutional: Reports system reviewed and no additional complaints, except as documented and Reports as per HPI ENT Ears, Nose, Mouth, and Throat: Reports system reviewed and no additional c omplaints, except as documented, Reports as per HPI, Reports nasal congestion, Reports nasal discharge and Reports sore throat Cardiovascular Cardiovascular: Reports system reviewed and no additional complaints, except as documented and Reports as per HPI Respiratory Respiratory: Reports system reviewed and no additional complaints, except as documented, Reports as per HPI and Reports cough Gastrointestinal Gastrointestingal: Reports system reviewed and no additional complaints, except as documented and as per HPI Physical Exam General General appearance: alert and in no apparent distress ENT ENT exam: Present mucous membranes moist Expanded ENT Exam Throat exam: Present tonsillar erythema Respiratory Respiratory exam: Present normal lung sounds bilaterally; Absent respiratory distress or wheezes Cardiovascular Cardiovascular exam: Present regular rate, normal rhythm and normal heart sounds Abdominal Exam Abdominal exam: Present soft and normal bowel sounds; Absent distention or tenderness Neurological Exam Neurological exam: Present alert, oriented X3 and normal gait Medical Decision Making Medical Records Screening: Per USPSTF and CDC recommendations, given the prevalence of disease in our region, it is our hospital?s policy to screen for HIV and viral Hepatitis for all patients aged 18 and over and those with ongoing risk factors. Juan F Inquiry Pt receiving controlled substance: No Juan F was queried for this patient: No Lab Data Lab results reviewed: Yes I reviewed the patient's lab results.
[2024-08-15 17:08] LABS: UTC Strep Screen (Rapid) Negative (Negative)
[2024-08-15 17:09] VITALS: BP 108/61; PULSE 78; RESP 18; TEMP 36.8; O2SAT 99
== END 2024-08-15 17:14 | disposition home or self-care (01) ==
PROVIDERS: Emergency Provider Nurse Practitioner; PCP Psychiatry & Neurology Neurology
DX: J02.9 Acute pharyngitis, unspecified (principal)
CPT/HCPCS: 87880; 99213; G0381

== ENCOUNTER 2025-08-17 08:32 | Emergency (ER) | payer SELFPAY ==
--- OUTSIDE RECORDS SUMMARY | 2025-06-29 08:20 | XMS_ITS | Encounter Summary ---
Author Organization [facility] Address [address] [place] [address] Care Team Providers Care Financial Manager Name Role Phone Ai Thomas MD Primary Care Provider [phone] Reason for Referral * Imaging (Routine) - Closed Specialty Diagnoses / Procedures Referred By Della hawthorne Referred To Contact Radiology Diagnoses Alcoholic cirrhosis of liver without ascites Gastroesophageal reflux disease without esophagitis Procedures US Liver Screen Dale Mejía PA [address] [place] [address] Phone: tel: fax: Referral ID Status Reason Start Date Expiration Date Visits Re quested Visits Authorized [id number] Closed 04/13/2025 10/13/2026 1 1 Reason for Visit * Imaging (Routine) - Closed Specialty Diagnoses / Procedures Referred By Della hawthorne Referred To Contact Radiology Diagnoses Alcoholic cirrhosis of liver without ascites Gastroesophageal reflux disease without esophagitis Procedures US Liver Screen Dale Mejía PA [address] [place] [address] Phone: tel: fax: Referral ID Status Reason Start Date Expiration Date Visits Re quested Visits Authorized [id number] Closed 04/13/2025 10/13/2026 1 1 Encounter Details Date Type Department Care Team (Latest Contact Info) Description 06/29/2025 8:20 AM EST - 06/29/2025 11:59 PM EST Hospital Encounter [facility] Ultrasound [address] [place] [phone] Alcoholic cirrhosis of liver without ascites; Gastroesophageal reflux disease without esophagitis Discharge Disposition: Home or Self Care Social History Tobacco Use Types Packs/Day Years Used Date Smoking Tobacco: Never Passive Smoke Exposure: Never Smokeless Tobacco: Never Alcohol Use Standard Drinks/Week Comments Not Currently 10 (1 standard drink = 0.6 oz pu re alcohol) pt. quit 2022. PHQ-2 Answer Date Recorded Patient Health Questionnaire-2 Score 0 04/13/2025 PHQ-9 Answer Date Recorded Patient Health Questionnaire-9 Score 0 04/13/2025 Humiliation, Afraid, Rape, and Kick questionnair e Answer Date Recorded Within the last year, have y ou been afraid of your partner or ex-partner? No 07/02/2025 Within the last year, have y ou been humiliated or emotionally abused in other ways by your partner or ex-partner? No Within the last year, have y ou been kicked, hit, slapped, or otherwise physically hurt by your partner or ex-partner? No 07/02/2025 Within the last year, have y ou been raped or forced to have any kind of sexual activity by your partner or ex-partner? No 07/02/2025 Hunger Vital Sign Answer Date Recorded Within the past 12 months, y ou worried that your food would run out before you got the money to buy more. Never true 07/02/20 25 Within the past 12 months, t he food you bought just didn't last and you didn't have money to get more. Never true 07/02/2025 PRAPARE - Transportation Answer Date Re corded In the past 12 months, has l ack of transportation kept you from medical appointments or from getting medications? No 06/20 In the past 12 months, has l ack of transportation kept you from meetings, work, or from getting things needed for daily living? No 07/02/2025 Housing Stability Vital Sign Answer Josh e Recorded In the last 12 months, was t here a time when you were not able to pay the mortgage or rent on time? No 07/02/2025 In the past 12 months, how m any times have you moved where you were living? 0 07/02/2025 At any time in the past 12 m [facility], were you homeless or living in a care home (including now)? No 07/02/2025 [facility] Utilities Answer Date Recorded In the past 12 months has th e [employer], gas, oil, or water company threatened to shut off services in your home? No 07/02/2025 CAGE ASSESSMENT Answer Date Recorded Cage unable to access Not on file 11/27/2022 Maximum number of drinks you had on a given occasion in the last month? 0 drinks 11/27/2022 How many alcoholic Beverages do you typically drink in a week? 0 - 7 per week 11/27/2022 Have you ever felt you should CUT down on your d rinking? 0 11/27/2022 Have you been ANNOYED by peo ple criticizing your drinking? 0 11/27/2022 Have you felt GUILTY about your drinking? 0 11/27/2022 Have you had a drink first t arlyn in the morning ([employer]) to steady your nerves or to get rid of a hangover? 0 11/27/2022 CAGE Questionnaire Score 0 023 PHQ-2A Answer Date Recorded Patient Health Questionnaire-2 Score 0 07/30/2023 Sex and Gender Information Value Date Recorded Sex Assigned at Not on file Legal Sex Male 6:58 PM EDT Gender Identity Not on file Sexual Orientation Not on file documented as of this encounter Medications at Time of Discharge Blood Glucose Monitoring Suppl kit Use to test blood sugar once daily before meals 1 kit 01/11/2024 fluconazole (Diflucan) 150 MG tabletIndication s:Yeast dermatitis Take 1 tablet by mouth 1 time per week. Take one tab now. Repeat in 7 days if symptoms persist. 3 tablet 1 12/25/2024 fluticasone (Flonase) 50 MCG/ACT nasal spray Administer 1 spray into each nostril daily. Shake gently. Before first use, prime pump. After use, clean tip and replace cap. 16 g 12 12/25/2024 glucose blood test strip Use to test blood sugar once daily before meals 90 each 3 01/11/2024 guaiFENesin (Mucinex) 600 MG 12 hr tablet Take 2 tablets by mouth 2 times a day. Do not crush, chew, or split. 40 tablet 1 12/25/2024 Lancets misc Use to test blood sugar once daily before meals 90 each 3 01/11/2024 metFORMIN (Glucophage) 500 MG tabletIndication s:Type 2 diabetes mellitus with other specified complication, without long-term current use of insulin Take 1 tablet by mouth 2 times a day with meals. 60 tablet 11 03/02/2025 nystatin (Mycostatin) 719250 UNIT/GM powder Apply twice daily times to affected area x 14 days 60 g 09/01/2024 pantoprazole (Protonix) 40 MG EC tablet TAKE 1 TABLET BY MOUTH ONCE DAILY *DO NOT CRUSH, CHEW, OR SPLIT* 90 tablet 1 05/19/2025 documented as of this encounter Plan of Treatment Upcoming Encounters Date Type Department Care Team (Late st Contact Info) Description 08/31/2025 10:00 AM EST Office Visit [facility] Endocrinology [address] [place] [phone] Caryn iMller PA [address] [facility] [address] [place] [phone] 10/19/2025 1:00 PM EST Office Visit [facility] Medicine Specialties [address] [place] [phone] Dale Mejía PA [address] [place] [phone] 12/31/2025 10:00 AM EDT Office Visit [facility] [address] [place] [address] Ai Thomas MD [address] [facility] [address] [place] [phone] documented as of this encounter Goals Goal Patient Goal Type Associated Problems Recent Progress Patient-Stated? Author Autogenera luigi Goal Care Plan Autogenerated Problem No Analisa Harman documented as of this encounter Procedures Procedure Name Priority Date/Time Associated Diagnosis Comments US LIVER SCREEN Routine 06/29/2025 9:06 AM EST Alcoholic cirrhosis of liver without ascites Gastroesophageal reflux disease without esophagitis documented in this encounter Results * US Liver Screen (06/29/2025 9:06 AM EST) Anatomical Region Laterality Modality Abdomen, Liver Ultrasound Impressions 06/29/2025 9:18 AM EST Mild hepatic steatosis Category Score US-1 Negative. No US evidence of HCC. No observation or Only definitely benign observation(s). Continue with regular screening. Visualization Score Vis A. No or minimal limitations. Limitations if any are unlikely to meaningfully affect sensitivity. The above scoring system and recommendations are based on Ultrasound LI-RADS version 2017. [email or web address] CRITICAL RESULT: No. COMMUNICATION: Per this written report. Drafted by Xiang Rodrigues MD on 06/29/2025 9:17 AM Final report signed by Xiang Rodrigues MD on 06/29/2025 9:18 AM Narrative 06/29/2025 9:18 AM EST CLINICAL INDICATION: liver cirrhosis; hcc surveillance TECHNIQUE: Multiplanar static and cine pinto scale ultrasound images of the abdomen were obtained, accompanied by selective color Doppler ultrasound images. COMPARISON: November 19, 2024 FINDINGS: Grayscale: Liver: There is increased echogenicity of liver. Normal echotexture. No surface nodularity is evident.. No focal liver lesion Portal Vein: There is antegrade flow within the main portal vein. Gallbladder: Prior cholecystectomy Common Duct: Nondilated measuring 3 mm Spleen: Within normal limits measuring 12.6 cm. Free Fluid: No ascites Other: N/A Procedure Note Xiang Rodrigues MD - 06/29/2025 CLINICAL INDICATION: liver cirrhosis; hcc surveillance TECHNIQUE: Multiplanar static and cine pinto scale ultrasound images of the abdomenwere obtained, accompanied by selective color Doppler ultrasound images. COMPARISON: November 19, 2024 FINDINGS: Grayscale: Liver: There is increased echogenicity of liver. Normal echotexture. Nosurface nodularity is evident.. No focal liver lesion Portal Vein: There is antegrade flow within the main portal vein. Gallbladder: Prior cholecystectomy Common Duct: Nondilated measuring 3 mm Spleen: Within normal limits measuring 12.6 cm. Free Fluid: No ascites Other: N/A IMPRESSION: Mild hepatic steatosis Category Score US-1 Negative. No US evidence of HCC. No observation orOnly definitely benign observation(s). Continue with regular screening. Visualization Score Vis A. No or minimal limitations. Limitations if anyare unlikely to meaningfully affect sensitivity. The above scoring system and recommendations are based on UltrasoundLI-RADS version 2017. [email or web address] CRITICAL RESULT: No. COMMUNICATION: Per this written report. Drafted by Xiang Rodrigues MD on 06/29/2025 9:17 AM Final report signed by Xiang Rodrigues MD on 06/29/2025 9:18 AM us Dale BALDWIN IMG US PROCEDURES Final Result documented in this encounter Visit Diagnoses Diagnosis Alcoholic cirrhosis of liver without ascites Gastroesophageal reflux disease without esophagitis Esophageal reflux documented in this encounter Additional Health Concerns Active Problems Noted Date Diagnosed Date Autogenerated Problem 11/23/2024 Assessment Noted Time PHQ-9 Depression Total Score: 0 04/13/20 2:02 PM EDT A fall risk assessment has been complete d for the patient 04/13/2025 2:02 PM EDT A Body Mass Index follow-up plan has been documented for the patient 04/22/2025 11:25 AM EDT documented as of this encounter Care Teams Financial Manager Relationship Specialty Start Date End Date Ai Thomas MD [address] [phone] PCP - General Family Medicine 02/24/21 documented as of this encounter
--- OUTSIDE RECORDS SUMMARY | 2025-07-02 09:40 | XMS_ITS | Encounter Summary ---
Author Organization [facility] Address [address] [place] [address] Care Team Providers Care Physiotherapy Aide Name Role Phone Ai Thomas MD Primary Care Provider [phone] Reason for Visit * Reason Comments Diabetes Encounter Details Date Type Department Care Team (Late st Contact Info) Description 07/02/2025 9:40 AM EST Office Visit [facility] [address] [place] [address] Ai Thomas MD [address] [place] [address] Type 2 diabetes mellitus with hyperglycemia, without long-term current use of insulin (Primary Dx); Need for influenza vaccination Social History Tobacco Use Types Packs/Day Years [...] any time in the past 12 m [facility], were you homeless or living in a prison (including now)? No 07/02/2025 [facility] Utilities Answer Date Recorded In the past 12 months has th e electric, gas, oil, or water company threatened to [...] drink first t arlyn in the morning ([employer]) to steady your nerves or to get rid of a hangover? 0 11/27/2022 CAGE Questionnaire Score 0 023 PHQ-2A Answer Date Recorded Patient Health Questionnaire-2 Score 0 07/30/2023 Sex and Gender Information Value Date Recorded Sex Assigned at Not on file Legal Sex Male 6:58 PM EDT Gender Identity Not on file Sexual Orientation Not on file documented as of this encounter Last Filed Vital Signs Vital Sign Reading Time Taken Comments Blood Pressure 115/71 07/02/2025 9:39 AM EST Pulse 75 07/02/2025 9:39 AM EST Temperature 36.7 C (98.1 F) 07/02/2025 9:39 AM EST Respiratory Rate - - Oxygen Saturation 96% 07/02/2025 9:39 AM EST Inhaled Oxygen Concentration - - Weight 95.1 kg (209 lb 10.5 oz) 07/02/2025 9:39 AM EST Height 172.7 cm (5' 8 ) 07/02/2025 9:39 AM EST Body Mass Index 31.88 07/02/2025 9:39 AM EST documented in this encounter Functional Status * BP Answer Date of Assessment Author 115/71 07/02/2025 9:39 AM EST Justine, Me keely * Temp Answer Date of Assessment Author 98.1 07/02/2025 9:39 AM EST Justine, Me keely * Pulse Answer Date of Assessment Author 75 07/02/2025 9:39 AM EST Jsutine, Me keely * SpO2 Answer Date of Assessment Author 96 07/02/2025 9:39 AM EST Justine Me keely * Height Answer Date of Assessment Author 68 07/02/2025 9:39 AM EST Justine Me keely * Weight Answer Date of Assessment Author 3354.52 07/02/2025 9:39 AM EST Justine, Me keely * BMI (Calculated) Answer Date of Assessment Author 31.9 07/02/2025 9:39 AM EST Justine Me keely * Percent Excess Weight Loss Answer Date of Assessment Author 0 07/02/2025 9:39 AM EST Justine Me keely * Total Weight Change Percent Answer Date of Assessment Author 222107/02/2025 9:39 AM EST Justine Me keely * Weight Change Since Preop Answer Date of Assessment Author 95.08 07/02/2025 9:39 AM EST Justine, Me keely * Initial Excess Weight Answer Date of Assessment Author -69.85 07/02/2025 9:39 AM EST Justine, Me keely * IBW in lbs (Bariatric) Answer Date of Assessment Author 154 07/02/2025 9:39 AM EST Justine, Me keely * Weight Change Since Last Visit Answer Date of Assessment Author 95.08 07/02/2025 9:39 AM EST Justine, Me keely * IBW in kg (Bariatric) Answer Date of Assessment Author 69.85 07/02/2025 9:39 AM EST Justine, Me keely * Percent of IBW Answer Date of Assessment Author 4,802.46 07/02/2025 9:39 AM EST Justine, Me keely * EBW (kg) Answer Date of Assessment Author 3,352.54 07/02/2025 9:39 AM EST Justine, Me keely * EBW (lbs) Answer Date of Assessment Author 3,344.9 07/02/2025 9:39 AM EST Justine, keely * Weight Change 24 hrs Answer Date of Assessment Author .298 07/02/2025 9:39 AM EST Justine, Me keely * Depression Screening Question Answer Date of Assessment Author Will the patient answer the depression risk questions? Yes 07/02/2025 9:41 AM EST Justine Eleonora * BSA (Calculated - sq m) Answer Date of Assessment Author 2.14 07/02/2025 9:39 AM EST Justine, keely * BMI (Calculated) Answer Date of Assessment Author 31.89 07/02/2025 9:39 AM EST Justine, Me keely * IBW/kg (Calculated) Male Answer Date of Assessment Author 68.4 07/02/2025 9:39 AM EST Justine, Me keely * IBW/kg (Calculated) Female Answer Date of Assessment Author 63.9 07/02/2025 9:39 AM EST Justine, Me keely * IBW/kg (Calculated) Answer Date of Assessment Author 68.4 07/02/2025 9:39 AM EST Justine, Me keely * Calculated C-SSRS Risk Score (Lifetime/Recent) Answer Date of Assessment Author No Risk Indicated 07/02/2025 9:40 AM Eleonora Smalls * Weight in (lb) to have BMI = 25 Answer Date of Assessment Author 164.1 07/02/2025 9:39 AM EST Me Justine keeyl * BMI (Calculated) Answer Date of Assessment Author 31.9 07/02/2025 9:39 AM EST Justine, keely * Percent Excess Weight Loss Answer Date of Assessment Author 0 07/02/2025 9:39 AM EST Justine, keely * Weight Change Since Preop Answer Date of Assessment Author 95.1 07/02/2025 9:39 AM EST Justine, keely * Initial Excess Weight Answer Date of Assessment Author -69.85 07/02/2025 9:39 AM EST Justine, Me keely * IBW in kg (Bariatric) Answer Date of Assessment Author 69.85 07/02/2025 9:39 AM EST Justine, Me keely * IBW in lb (Bariatric) Answer Date of Assessment Author 154 07/02/2025 9:39 AM KYARA Fletcher, keely * Weight Change Since Last Visit Answer Date of Assessment Author 95.1 07/02/2025 9:39 AM KYARA Fletcher, keely * Percent of IBW Answer Date of Assessment Author 136.14 07/02/2025 9:39 AM EST Justine, keely * EBW (kg) Answer Date of Assessment Author 25.23 07/02/2025 9:39 AM EST Justine, Me keely * EBW (lb) Answer Date of Assessment Author 55.66 07/02/2025 9:39 AM EST Justine, Me keely * Difference in Weight Since Last Visit Answer Date of Assessment Author 0.3 07/02/2025 9:39 AM EST Justine, Me keely * Temp (in Celsius) for MENOMINEE IV Answer Date of Assessment Author 36.7 07/02/2025 9:39 AM EST Justine, Me keely * IBW/kg (Calculated) Answer Date of Assessment Author 68.4 07/02/2025 9:39 AM EST Justine, Me keely * Adult Low Range Vt 6mL/kg Answer Date of Assessment Author 410.4 07/02/2025 9:39 AM EST Justine, Me keely * Adult Moderate Range Vt 8mL/kg Answer Date of Assessment Author 547.2 07/02/2025 9:39 AM EST Justine, Me keely * Adult High Range Vt 10mL/kg Answer Date of Assessment Author 684 07/02/2025 9:39 AM EST Justine, Me keely * Pain Score Answer Date of Assessment Author 0 07/02/2025 9:41 AM EST Justine, Me keely * Pain Screening/Additional Assessments Question Answer Date of Assessment Author Pain Screening/Assessments Pain Screening 07/02/2025 9 :41 AM EST Delia Fletcherissa * Pain Screening Answer Date of Assessment Author 0-10 07/02/2025 9:41 AM EST Justine, Me keely * C-SSRS (Screener) Question Answer Date of Assessment Author Is patient awake, alert, and able/willing to answer questions appropriately? Yes 07/02/2025 9:40 AM EST Justine Eleonora 1. Wish to be (Past 1 Month) No 025 9:40 AM EST Justine Eleonora 2. Non-Specific Active Suici jonna Thoughts (Past 1 Month) No 07/02/2025 9:40 AM EST Justine Eleonora 6. Suicidal Behavior (Lifetime) No 9:40 AM EST Justine Eleonora * BP Answer Date of Assessment Author 115/71 07/02/2025 9:39 AM EST Justine, Me keely * Temp Answer Date of Assessment Author 98.1 07/02/2025 9:39 AM EST Justine, Me keely * Pulse Answer Date of Assessment Author 75 07/02/2025 9:39 AM EST Justine, Me keely * SpO2 Answer Date of Assessment Author 96 07/02/2025 9:39 AM EST Justine, Me keely * Height Answer Date of Assessment Author 68 07/02/2025 9:39 AM EST Justine, Me keely * Weight Answer Date of Assessment Author 3354.52 07/02/2025 9:39 AM EST Justine, Me keely * BSA (Calculated - sq m) Answer Date of Assessment Author 2.14 07/02/2025 9:39 AM EST Justine, Me keely * BMI (Calculated) Answer Date of Assessment Author 31.89 07/02/2025 9:39 AM EST Justine, Me keely * Calculated C-SSRS Risk Score (Lifetime/Recent) Answer Date of Assessment Author No Risk Indicated 07/02/2025 9:40 AM EST Justine, Eleonora * Weight in (lb) to have BMI = 25 Answer Date of Assessment Author 164.1 07/02/2025 9:39 AM EST Justine, Me keely * Pain Score Answer Date of Assessment Author 0 07/02/2025 9:41 AM EST Justine, Me keely * C-SSRS (Screener) Question Answer Date of Assessment Author Is patient awake, alert, and able/willing to answer questions appropriately? Yes 07/02/2025 9:40 AM EST Justine, Eleonora 1. Wish to be (Past 1 Month) No 025 9:40 AM EST Justine, Eleonora 2. Non-Specific Active Suici jonna Thoughts (Past 1 Month) No 07/02/2025 9:40 AM EST Justine, Eleonora 6. Suicidal Behavior (Lifetime) No 9:40 AM EST Justine Eleonora documented as of this encounter Mental Status * BP Answer Entry Date Author 115/71 07/02/2025 9:39 AM EST Justine, Me keely * Temp Answer Entry Date Author 98.1 07/02/2025 9:39 AM EST Justine, Me keely * Pulse Answer Entry Date Author 75 07/02/2025 9:39 AM EST Justine, Me keely * SpO2 Answer Entry Date Author 96 07/02/2025 9:39 AM EST Justine, Me keely * Height Answer Entry Date Author 68 07/02/2025 9:39 AM EST Justine, Me keely * Weight Answer Entry Date Author 3354.52 07/02/2025 9:39 AM EST Justine, Me keely * BMI (Calculated) Answer Entry Date Author 31.9 07/02/2025 9:39 AM EST Justine, Me keely * Percent Excess Weight Loss Answer Entry Date Author 0 07/02/2025 9:39 AM EST Justine, Me keely * Total Weight Change Percent Answer Entry Date Author 222107/02/2025 9:39 AM EST Justine, Me keely * Weight Change Since Preop Answer Entry Date Author 95.08 07/02/2025 9:39 AM EST Justine, Me keely * Initial Excess Weight Answer Entry Date Author -69.85 07/02/2025 9:39 AM EST Justine, Me keely * IBW in lbs (Bariatric) Answer Entry Date Author 154 07/02/2025 9:39 AM EST Justine, Me keely * Weight Change Since Last Visit Answer Entry Date Author 95.08 07/02/2025 9:39 AM EST Justine, Me keely * IBW in kg (Bariatric) Answer Entry Date Author 69.85 07/02/2025 9:39 AM EST Justine, Me keely * Percent of IBW Answer Entry Date Author 4,802.46 07/02/2025 9:39 AM EST Justine, Me keely * EBW (kg) Answer Entry Date Author 3,352.54 07/02/2025 9:39 AM EST Justine, Me keely * EBW (lbs) Answer Entry Date Author 3,344.9 07/02/2025 9:39 AM EST Justine, Me keely * Weight Change 24 hrs Answer Entry Date Author .298 07/02/2025 9:39 AM EST Justine, Me keely * Depression Screening Question Answer Entry Date Author Will the patient answer the depression risk questions? Yes 07/02/2025 9:41 AM EST Justine, Eleonora * BSA (Calculated - sq m) Answer Entry Date Author 2.14 07/02/2025 9:39 AM EST Justine, Me keely * BMI (Calculated) Answer Entry Date Author 31.89 07/02/2025 9:39 AM EST Justine, Me keely * IBW/kg (Calculated) Male Answer Entry Date Author 68.4 07/02/2025 9:39 AM EST Justine, Me keely * IBW/kg (Calculated) Female Answer Entry Date Author 63.9 07/02/2025 9:39 AM EST Justine, Me keely * IBW/kg (Calculated) Answer Entry Date Author 68.4 07/02/2025 9:39 AM EST Justine, Me keely * HARK Concern Calculation Answer Entry Date Author 1 07/02/2025 9:41 AM EST Justine, Me keely * Food Insecurity Concern Calculation Answer Entry Date Author 1 07/02/2025 9:41 AM EST Justine, Me keely * Transportation Needs Concern Calculation Answer Entry Date Author 1 07/02/2025 9:41 AM EST Justine, Me keely * Housing Stability Concern Calculation Answer Entry Date Author 1 07/02/2025 9:41 AM EST Justine, Me keely * Utilities Concern Calculation Answer Entry Date Author 1 07/02/2025 9:41 AM EST Justine, Me keely * Calculated C-SSRS Risk Score (Lifetime/Recent) Answer Entry Date Author No Risk Indicated 07/02/2025 9:40 AM KYARA FletcherEleonora * Restart Pain Assessment Timer Answer Entry Date Author Yes 07/02/2025 9:41 AM EST Justine, Me keely * Weight in (lb) to have BMI = 25 Answer Entry Date Author 164.1 07/02/2025 9:39 AM EST Justine, Me keely * BMI (Calculated) Answer Entry Date Author 31.9 07/02/2025 9:39 AM EST Justine, Me keely * Percent Excess Weight Loss Answer Entry Date Author 0 07/02/2025 9:39 AM EST Justine, Me keely * Weight Change Since Preop Answer Entry Date Author 95.1 07/02/2025 9:39 AM EST Justine, Me keely * Initial Excess Weight Answer Entry Date Author -69.85 07/02/2025 9:39 AM EST Justine, Me keely * IBW in kg (Bariatric) Answer Entry Date Author 69.85 07/02/2025 9:39 AM EST Justine, Me keely * IBW in lb (Bariatric) Answer Entry Date Author 154 07/02/2025 9:39 AM EST Justine, Me keely * Weight Change Since Last Visit Answer Entry Date Author 95.1 07/02/2025 9:39 AM EST Justine, Me keely * Percent of IBW Answer Entry Date Author 136.14 07/02/2025 9:39 AM EST Justine, Me keely * EBW (kg) Answer Entry Date Author 25.23 07/02/2025 9:39 AM EST Justine, Me keely * EBW (lb) Answer Entry Date Author 55.66 07/02/2025 9:39 AM EST Justine, Me keely * Difference in Weight Since Last Visit Answer Entry Date Author 0.3 07/02/2025 9:39 AM EST Justine, Me keely * Temp (in Celsius) for MENOMINEE IV Answer Entry Date Author 36.7 07/02/2025 9:39 AM EST Justine, Me keely * IBW/kg (Calculated) Answer Entry Date Author 68.4 07/02/2025 9:39 AM EST Justine, Me keely * Adult Low Range Vt 6mL/kg Answer Entry Date Author 410.4 07/02/2025 9:39 AM EST Justine, Me keely * Adult Moderate Range Vt 8mL/kg Answer Entry Date Author 547.2 07/02/2025 9:39 AM EST Justine, Me keely * Adult High Range Vt 10mL/kg Answer Entry Date Author 684 07/02/2025 9:39 AM EST Justine, Me keely * Pain Score Answer Entry Date Author 0 07/02/2025 9:41 AM EST Justine, Me keely * Pain Screening Answer Entry Date Author 0-10 07/02/2025 9:41 AM EST Justine, Me keely * C-SSRS (Screener) Question Answer Entry Date Author Is patient awake, alert, and able/willing to answer questions appropriately? Yes 07/02/2025 9:40 AM EST Delia Fletcherissa 1. Wish to be (Past 1 Month) No 025 9:40 AM EST Justine Eleonora 2. Non-Specific Active Suici jonna Thoughts (Past 1 Month) No 07/02/2025 9:40 AM EST Justine Eleonora 6. Suicidal Behavior (Lifetime) No 9:40 AM EST Delia Fletcherissa documented in this encounter Miscellaneous Notes * Progress Notes - Ai Thomas MD - 07/02/2025 9:40 AM EST Subjective Patient ID: Dre Baez is a 35 y.o. male. Chief Complaint Patient presents with Diabetes Patient is a 35 year old male who presents today for follow up on chronic conditions. Patient is accompanied by an in person site interpreter. Patient says that he continues to take his metformin. He says that he is taking it regularly. Patient says that he has no concerns about this and he is feeling well. Patient would like his flu vaccine. The following portions of the chart were reviewed this encounter and updated as appropriate: Review of Systems Constitutional: Negative. Respiratory: Negative. Cardiovascular: Negative. Psychiatric/Behavioral: Negative. Objective Visit Vitals BP 115/71 Pulse 75 Temp 36.7 ??C (98.1 ??F) Ht 1.727 m (5' 8 ) Wt 95.1 kg (209 lb 10.5 oz) SpO2 96% BMI 31.88 kg/m?? Smoking Status Never BSA 2.14 m?? Physical Exam Constitutional: Appearance: Normal appearance. HENT: Head: Normocephalic. Cardiovascular: Rate and Rhythm: Normal rate. Pulmonary: Effort: Pulmonary effort is normal. Musculoskeletal: General: Normal range of motion. Skin: General: Skin is warm and dry. Neurological: Mental Status: He is alert. Psychiatric: Mood and Affect: Mood normal. Behavior: Behavior normal. Assessment/Plan Assessment & Plan Need for influenza vaccination Type 2 diabetes mellitus with hyperglycemia, without long-term current use of insulin Patient is a 35 year old male who presents today for follow up on: Type 2 DM - well controlled - A1c today 6.4% - will continue with Metformin 500mg BID. Dicussed with patient that if continues to trend up will need to increase his Metformin to 1000mg BID. - continue to work on diet and exercise HM - flu vaccine today RTC: 6 months for follow up on chronic conditions documented in this encounter Plan of Treatment Upcoming Encounters Date Type Department Care Team (Late st Contact Info) Description 08/31/2025 10:00 AM EST Office Visit [facility] Endocrinology [address] [place] [phone] Caryn Miller PA [address] [place] [phone] 10/19/2025 1:00 PM EST Office Visit [facility] [address] [place] [phone] Dale Mejía PA [address] [place] [phone] 12/31/2025 10:00 AM EDT Office Visit [facility] [address], [address] [place] [address] Ai Thomas MD [address] [place] [address] documented as of this encounter Goals Goal Patient Goal Type Associated Problems Recent Progress Patient-Stated? Author Autogenera luigi Goal Care Plan Autogenerated Problem No Analisa Harman documented as of this encounter Procedures Procedure Name Priority Date/Time Associated Diagnosis Comments POCT GLYCOSYLATED HEMOGLOBIN (HGB A1C) Routine 07/02/2025 9:48 AM EST documented in this encounter Results * (ABNORMAL) POCT GLYCOSYLATED HEMOGLOBIN (HGB A1C) (07/02/2025 9:48 AM EST) POCT Hemoglobin A1C 6.4(H) <5.7% Non-Diabet ic % 07/02/2025 9:56 AM EST [facility] Blood Venous blood specimen / Unknown 07/02/2025 9:48 AM EST 07/02/2025 9:56 AM EST us Ai Thomas MD LAB POINT OF CARE TE ST DOCKED DEVICE UNSOLICITED RESULTS Final Result [facility] [address] [place] [address] documented in this encounter Visit Diagnoses Diagnosis Type 2 diabetes mellitus with hyperglycemia, without long-term current use of insulin- Primary Need for influenza vaccination Need for prophylactic vaccination and inoculation against influenza documented in this encounter Additional Health Concerns Active Problems Noted Date Diagnosed Date Autogenerated Problem 11/23/2024 Assessment Noted Time PHQ-9 Depression Total Score: 0 04/13/20 2:02 PM EDT A fall risk assessment has been complete d for the patient 04/13/2025 2:02 PM EDT A Body Mass Index follow-up plan has been documented for the patient 07/02/2025 12:34 PM EST documented as of this encounter Care Teams Physiotherapy Aide Relationship Specialty Start Date End Date Ai Thomas MD [address] [id number] PCP - General Family Medicine 02/24/21 documented as of this encounter
[2025-08-17] VITALS (25 sets, daily range): BP systolic 112–153; BP diastolic 69–103; PULSE 75–111; RESP 15–17; TEMP 36.5–36.9; O2SAT 91–99; BMI 38.2
--- OUTSIDE RECORDS SUMMARY | 2025-08-17 08:43 | XMS_ITS | Clinical Summary ---
Author Organization [facility] Address [address] [place] [address] Care Team Providers Care Theoretical Physicist Name Role Phone Ai Thomas MD Primary Care Provider + [phone] Allergies No known active allergies Medications Blood Glucose Monitoring Suppl kit Use to test blood sugar once daily before meals 1 kit 4 Active glucose blood test strip Use to test blood sugar once daily before meals 90 each 3 4 Active Lancets misc Use to test blood sugar once daily before meals 90 each 3 4 Active nystatin (Mycostatin) 588364 UNIT/GM powder Apply twice daily times to affected area x 14 days 60 g 5 Active fluconazole (Diflucan) 150 MG tabletIndicatio ns:Yeast dermatitis Take 1 tablet by mouth 1 time per week. Take one tab now. Repeat in 7 days if symptoms persist. 3 tablet 1 5 Active guaiFENesin (Mucinex) 600 MG 12 hr tablet Take 2 tablets by mouth 2 times a day. Do not crush, chew, or split. 40 tablet 1 5 Active fluticasone (Flonase) 50 MCG/ACT nasal spray Administer 1 spray into each nostril daily. Shake gently. Before first use, prime pump. After use, clean tip and replace cap. 16 g 12 5 Active metFORMIN (Glucophage) 500 MG tabletIndicatio ns:Type 2 diabetes mellitus with other specified complication, without long-term current use of insulin Take 1 tablet by mouth 2 times a day with meals. 60 tablet 11 5 03/02/20 26 Active pantoprazole (Protonix) 40 MG EC tablet TAKE 1 TABLET BY MOUTH ONCE DAILY *DO NOT CRUSH, CHEW, OR SPLIT* 90 tablet 1 5 Active Active Problems Problem Noted Date Diagnosed Date Type 2 diabetes mellitus, wi thout long-term current use of insulin 03/02/2025 Allergic rhinitis 03/02/2025 Type 2 diabetes mellitus wit h hyperglycemia, without long-term current use of insulin 11/26/2023 Obesity (BMI 35.0-39.9 without comorbidity) 07/20 Gastroesophageal reflux disease without esophagi tis 11/15/2021 Cholesteatoma of left ear 07/09/2020 Alcoholic cirrhosis of liver without ascites 07/2019 Resolved Problems Problem Noted Date Diagnosed Date Resolved Date Cholelithiasis 11/28/2018 09/01/2024 Encounters Date Type Department Care Team Description 07/02/2025 9:40 AM EST Office Visit [address], [address] [place] [phone] Ai Thomas MD Type 2 diabetes mellitus with hyperglycemia, without long-term current use of insulin (Primary Dx); Need for influenza vaccination 07/02/2025 Travel 06/29/2025 8:20 AM EST - 06/29/2025 11:59 PM EST Hospital Encounter [facility] Ultrasound [address] [place] [address] Alcoholic cirrhosis of liver without ascites; Gastroesophageal reflux disease without esophagitis Discharge Disposition: Home or Self Care 06/29/2025 Travel 05/18/2025 Refill [facility] [address] [place] [address] Dale Mejía PA from Last 3 Months Immunizations Immunization Administration Dates Next Due Hep A / Hep B 09/23/2019,07/31/2019 Influenza, injectable, quadr ivalent, preservative free 09/13/2021,07/09/2020,06/10/2019 Influenza, seasonal, injecta ble, preservative free 07/02/2025,06/24/2024 Tdap 08/23/2016 Family History Medical History Relation Name Comments Diabetes Father Anesthesia problems Neg Hx Malig Hyperthermia Neg Hx Relation Name Status Comments Father Social History Tobacco Use Types Packs/Day Years Used Date Smoking Tobacco: Never Passive Smoke Exposure: Never Smokeless Tobacco: Never Tobacco Cessation:Counseling Given: Not Answered Alcohol Use Standard Drinks/Week Comments Not Currently [...] any time in the past 12 m [facility], were you homeless or living in a residential (including now)? 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 0 11/27/2022 CAGE Questionnaire Score 0 023 PHQ-2A Answer Date Recorded Patient Health Questionnaire-2 Score 0 07/30/2023 Sex and Gender Information Value Date Recorded Sex Assigned at Not on file Legal Sex Male 6:58 PM EDT Gender Identity Not on file Sexual Orientation Not on file Last Filed Vital Signs Vital Sign Reading Time Taken Comments Blood Pressure 115/71 07/02/2025 9:39 AM EST Pulse 75 07/02/2025 9:39 AM EST Temperature 36.7 C (98.1 F) 07/02/2025 9:39 AM EST Respiratory Rate 15 12/23/2024 12:5 8 PM EDT Oxygen Saturation 96% 07/02/2025 9:39 AM EST Inhaled Oxygen Concentration - - Weight 95.1 kg (209 lb 10.5 oz) 07/02/2025 9:39 AM EST Height 172.7 cm (5' 8 ) 07/02/2025 9:39 AM EST Body Mass Index 31.88 07/02/2025 9:39 AM EST Plan of Treatment Upcoming Encounters Date Type Department Care Team (Late st Contact Info) Description 08/31/2025 10:00 AM EST Office Visit [facility] [place] [address] Caryn Miller PA [address] [place] [address] 10/19/2025 1:00 PM EST Office Visit [facility] [address] [place] [address] Dale Mejía PA [address] [place] [address] 12/31/2025 10:00 AM EDT Office Visit [facility] [address] [facility], [address] [place] [address] Ai Thomas MD [address] [facility] [address] [place] [address] Health Maintenance Due Date Last Done Comments [facility]-/Child/Adol SDOH Screenings 1990 Diabetes: Dental Exam 2000 [facility]-Varicella Vaccines (1 of 2 - 13+ 2-dose series) 2003 [facility]-Pneumococcal Vaccine: Pediatrics (0 to 5 Years) and At-Risk Patients (6 to 49 Years) (1 of 2 - PCV) 2009 [facility]-Hepatitis A Vaccines (3 of 3 - Hep A Twinrix risk 3-dose series) 02/21/2020 09/23/2019, 07/31/2019 [facility]-Hepatitis B Vaccines (3 of 3 - Hep B Twinrix 3-dose series) 02/21/2020 09/23/2019, 07/31/2019 LQO-DDKAN-10 Vaccine ( - season) 2025 [facility]- SDOH Screenings 12/30/2025 [facility]-Adult SDOH Screenings 12/30/2025 07/02/2025 [facility]-Diabetes: Hemoglobin A1C 12/30/2025 07/02/2025, 12/25/2024, 06/24/2024, Additional history exists [facility]-Depression Screening 04/13/2026 04/13/2025, 03/21 [facility]-DTaP,Tdap,and Td Vaccines (2 - Td or Tdap) 08/23/2026 08/23/2016 [facility]-Zoster Vaccines (1 of 2) 2040 [facility]-HIV Screening Completed 11/12/2023, , 01/08/2020, Additional history exists [facility]-Hepatitis C Screening Completed 2023, 01/25/2022, 01/19/2020, Additional history exists [facility]-Influenza Vaccine Completed 07/02/2025 , 06/24/2024, 09/13/2021, Additional history exists [facility]-Obesity Intervention Completed 025, 04/13/2025, 03/02/2025, Additional history exists HPV Vaccines (No Doses Required) Completed [facility]-HIB Vaccines Aged Out No longer e ligible based on patient's age to complete this topic [facility]-IPV Vaccines Aged Out No longer e ligible based on patient's age to complete this topic [facility]-Rotavirus Vaccines Aged Out No lo nger eligible based on patient's age to complete this topic Goals Goal Patient Goal Type Associated Problems Recent Progress Patient-Stated? Author Autogenera luigi Goal Care Plan Autogenerated Problem No Analisa Harman Procedures Procedure Name Priority Date/Time Associated Diagnosis Comments POCT GLYCOSYLATED HEMOGLOBIN (HGB A1C) Routine 07/02/2025 9:48 AM EST US LIVER SCREEN Routine 06/29/2025 9:06 AM EST Alcoholic cirrhosis of liver without ascites Gastroesophageal reflux disease without esophagitis HEPATITIS C ANTIBODY - ED W/REFLEX TO HCV QUANT PCR STAT 11/12/2023 10:39 AM EDT ED HIV 1/2 ANTIBODY/ANTIGEN SCREEN WITH REFLEX TO HIV I/II DIFFERENTIATION STAT 11/12/2023 10:39 AM EDT from Last 3 Months or Most Recently Relevant to Health Maintenance Results * (ABNORMAL) POCT GLYCOSYLATED HEMOGLOBIN (HGB A1C) (07/02/2025 9:48 AM EST) POCT Hemoglobin A1C 6.4(H) <5.7% Non-Diabet ic % 07/02/2025 9:56 AM EST [facility] Blood Venous blood specimen / Unknown 07/02/2025 9:48 AM EST 07/02/2025 9:56 AM EST us Ai Thomas MD LAB POINT OF CARE TE ST DOCKED DEVICE UNSOLICITED RESULTS Final Result [facility] [address] [place] [address] * US Liver Screen (06/29/2025 9:06 AM [...] are based on Ultrasound LI-RADS version 2017. [email or web address] CRITICAL RESULT: No. COMMUNICATION: Per [...] recommendations are based on UltrasoundLI-RADS version 2017. [email or web address] CRITICAL RESULT: No. COMMUNICATION: Per this written report. Drafted by Xiang Rodrigues MD on 06/29/2025 9:17 AM Final report signed by Xiang Rodrigues MD on 06/29/2025 9:18 AM Dale [place] [facility] [place]EDURES Final Result * ED HIV 1/2 Antibody/Antigen Screen w/Reflex to HIV 1/2 Differentiation (11/12/2023 10:39 AM EDT) HIV 1 & 2 Antibody/Antigen Screen Non Reactive Non Reactive 11/12/2023 11:21 AM EDT [facility] Comment:Screening for HIV 1 & 2 antibodies, and P24 antigen is NONREACTIVE. No confirmatory testing is required. Blood Venous blood specimen / Unknown Venipuncture / Unknown 11/12/2023 10:39 AM EDT 11/12/2023 10:42 AM EDT us Lidia BALDWIN LAB BLOOD ORDERABLES Final Res ult Performing Organization Address [facility] Co de Phone Number [facility] [address] [place] [address] * Hepatitis C Antibody - ED (11/12/2023 10:39 AM EDT) Hepatitis C Antibody Negative Negative 11/12/2023 11:17 AM EDT [facility] Blood Venous blood specimen / Unknown Venipuncture / Unknown 11/12/2023 10:39 AM EDT 11/12/2023 10:42 AM EDT us Lidia BALDWIN LAB BLOOD ORDERABLES Final Res ult Performing Organization Address [facility] de Phone Number [facility]ALTH[facility]ARE [facility] [address] [place] [address] from Last 3 Months or Most Recently Relevant to Health Maintenance Additional Health Concerns Active Problems Noted Date Diagnosed Date Autogenerated Problem 11/23/2024 Care Teams Theoretical Physicist Relationship Specialty Start Date End Date Ai Thomas MD [address] [address] PCP - General Family Medicine 02/24/21
--- OUTSIDE RECORDS SUMMARY | 2025-08-17 08:43 | XMS_ITS | Encounter Summary ---
Author Organization [facility] Address [address] [place] [address] Care Team Providers Care Set Up / Operator Name Role Phone Ai Thomas MD Primary Care Provider + [phone] Encounter Details Date Type Department Care Team (Latest Contact Info) Description 07/02/2025 Travel Social History Tobacco Use Types Packs/Day Years [...] any time in the past 12 m [facility], were you homeless or living in a assisted (including now)? 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 0 11/27/2022 CAGE Questionnaire Score 0 023 PHQ-2A Answer Date Recorded Patient Health Questionnaire-2 Score 0 07/30/2023 Sex and Gender Information Value Date Recorded Sex Assigned at Not on file Legal Sex Male 6:58 PM EDT Gender Identity Not on file Sexual Orientation Not on file documented as of this encounter Functional Status * Communicable Disease Screening Question Answer Date of Assessment Author Have you been in contact wit h someone who was sick? No / Unsure 07/02/2025 9:26 AM Brooke Granger Do you have any of the following new or worsening symptoms? None of these 07/02/2025 9:26 AM Brooke Granger * Travel Screening Question Answer Date of Assessment Author Have you traveled [place] or domestically in the last month? No 07/02/2025 9:26 AM Brooke Granger documented as of this encounter Mental Status * Communicable Disease Screening Question Answer Entry Date Author Have you been in contact wit h someone who was sick? No / Unsure 07/02/2025 9:26 AM Brooke Granger Do you have any of the following new or worsening symptoms? None of these 07/02/2025 9:26 AM Brooke Granger * Travel Screening Question Answer Entry Date Author Have you traveled [place] or domestically in the last month? No 07/02/2025 9:26 AM Brooke Granger documented in this encounter Plan of Treatment Upcoming Encounters Date Type Department Care Team (Late st Contact Info) Description 08/31/2025 10:00 AM EST Office Visit [facility] Endocrinology [address] [place] [address] Caryn Miller PA [address] [facility] [address] [place] [address] 10/19/2025 1:00 PM EST Office Visit [facility] Medicine Specialties [address] [place] [address] Dale Mejía PA [address] [place] [address] 12/31/2025 10:00 AM EDT Office Visit [facility] [address] [place] [address] Ai Thomas MD [address] [facility] [address] [place] [address] documented as of this encounter Goals Goal Patient Goal Type Associated Problems Recent Progress Patient-Stated? Author Autogenera luigi Goal Care Plan Autogenerated Problem No Analisa Harman documented as of this encounter Visit Diagnoses Not on filedocumented in this encounter Additional Health Concerns Active [...] documented as of this encounter Care Teams Set Up / Operator Relationship Specialty Start Date End Date Ai Thomas MD [address] [facility] [address] [place] [address] PCP - General Family Medicine 02/24/21 documented as of this encounter
--- OUTSIDE RECORDS SUMMARY | 2025-08-17 08:43 | XMS_ITS | Encounter Summary ---
Author Organization [facility] Address [address] [place] [address] Care Team Providers Care Blanching Machine Operator Name Role Phone Ai Thomas MD Primary Care Provider + [phone] Encounter Details Date Type Department Care Team (Latest Contact Info) Description 06/29/2025 Travel Social History Tobacco Use Types Packs/Day Years Used Date Smoking Tobacco: Never Passive Smoke Exposure: Never Smokeless Tobacco: Never Alcohol Use Standard Drinks/Week Comments Not Currently 10 (1 standard drink = 0.6 oz pu re alcohol) pt. quit 2022. Humiliation, Afraid, Rape, and Kick questionnair e Answer Date Recorded Within the last year, have y ou been afraid of your partner or ex-partner? No 12/25/2024 Within the last year, have y ou been humiliated or emotionally abused in other ways by your partner or ex-partner? No Within the last year, have y ou been kicked, hit, slapped, or otherwise physically hurt by your partner or ex-partner? No 12/25/2024 Within the last year, have y ou been raped or forced to have any kind of sexual activity by your partner or ex-partner? No 12/25/2024 PHQ-2 Answer Date Recorded Patient Health Questionnaire-2 Score 0 04/13/2025 Hunger Vital Sign Answer Date Recorded Within the past 12 months, y ou worried that your food would run out before you got the money to buy more. Never true 12/26/19 25 Within the past 12 months, t he food you bought just didn't last and you didn't have money to get more. Never true 12/25/2024 PRAPARE - Transportation Answer Date Re corded In the past 12 months, has l ack of transportation kept you from medical appointments or from getting medications? No 03/2025 In the past 12 months, has l ack of transportation kept you from meetings, work, or from getting things needed for daily living? No 12/25/2024 Housing Stability Vital Sign Answer Josh e Recorded In the last 12 months, was t here a time when you were not able to pay the mortgage or rent on time? No 06/24/2024 In the last 12 months, how many places have you lived? 1 06/24/2024 In the last 12 months, was t here a time when you did not have a steady place to sleep or slept in a nursing home (including now)? No 06/24/2024 PHQ-9 Answer Date Recorded Patient Health Questionnaire-9 Score 0 04/13/2025 Housing Stability Vital Sign Answer Josh e Recorded In the last 12 months, was t here a time when you were not able to pay the mortgage or rent on time? No 12/25/2024 In the past 12 months, how m any times have you moved where you were living? 0 12/25/2024 At any time in the past 12 m [facility], were you homeless or living in a nursing home (including now)? 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 0 11/27/2022 CAGE Questionnaire Score 0 023 Utilities Answer Date Recorded In the past 12 months has th e electric, gas, oil, or water company threatened to shut off services in your home? No 12/25/2024 PHQ-2A Answer Date Recorded Patient Health Questionnaire-2 [...] someone who was sick? No / Unsure 06/29/2025 8:19 AM EST Lashanda Mcgraw n E Do you have any of the following new or worsening symptoms? None of these 06/29/2025 8:19 AM EST Lucien Alyssia E * Travel Screening Question Answer Date of Assessment Author Have you traveled [place] or domestically in the last month? No 06/29/2025 8:19 AM EST Mila lopez Alyssia E documented as of this encounter Mental Status * Communicable Disease Screening Question Answer Entry Date Author Have you been in contact wit h someone who was sick? No / Unsure 06/29/2025 8:19 AM EST Lashanda Mcgraw n E Do you have any of the following new or worsening symptoms? None of these 06/29/2025 8:19 AM EST Sarath Mcgrawistyn E * Travel Screening Question Answer Entry Date Author Have you traveled [place] or domestically in the last month? No 06/29/2025 8:19 AM Sarath العليistyn E documented in this encounter Plan of Treatment Upcoming Encounters Date Type Department Care Team (Late st Contact Info) Description 08/31/2025 10:00 AM EST Office [facility] [address] [place] [phone] Caryn Miller PA [address] [facility] [address] [place] [phone] 10/19/2025 1:00 PM EST Office Visit [facility] Medicine Specialties [address] [place] [address] Dale Mejía PA [address] [place] [phone] 12/31/2025 10:00 AM EDT Office Visit [facility] [address] , [address] [place] [phone] Ai Thomas MD [address] [place] [address] documented as of this encounter Goals Goal Patient Goal Type Associated Problems Recent Progress Patient-Stated? Author Autogenera luigi Goal Care Plan Autogenerated Problem No KimaniAnalisa documented as of this encounter Visit Diagnoses [...] documented as of this encounter Care Teams Blanching Machine Operator Relationship Specialty Start Date End Date Ai Thomas MD [address] [place] [address] PCP - General Family Medicine 02/24/21 documented as of this encounter
[2025-08-17 08:47] LABS: Microscopic, Urine URINE MICROSCOPIC (MICROSCOPIC)
[2025-08-17 08:49] LABS: Bilirubin,Urine Negative (Negative); Color,Urine YELLOW (Yellow); Glucose,Urine (UA) Negative (Negative); Ketones,Urine Negative (Negative); Leukocyte Esterase,Urine Negative (Negative); PH,Urine 6.5 (5.0-8.5); Protein,Urine Negative (Negative); Specific Gravity, Urine 1.020 (1.005-1.030); Urobilinogen,Urine 0.2 EU/dl (0.2)
--- NOTE | 2025-08-17 08:51 | ED_ITS ---
Discharge Plan Disposition Patient Disposition: Home, Self-Care Prescriptions Prescriptions: New famotidine [Pepcid AC] 20 mg tablet 20 mg PO BID PRN (Reason: abdominal pain) 14 Days Qty: 28 0RF alum-mag hydroxide-simeth [Maalox Advanced] 200-200-20 mg/5 mL suspension 5 ml PO Q3H PRN (Reason: dyspepsia) Qty: 3000 0RF No Action azithromycin [Zithromax Z-Olu] 250 mg tablet See Rx Instructions .ROUTE .COMPLEX 5 Days Qty: 6 0RF Rx Instructions: For 250 mg dose pack: take 500 mg today (day 1), then 250 mg for 4 days (days 2-5) benzonatate 100 mg capsule 100 mg PO TID PRN (Reason: cough) Qty: 30 0RF Referrals Follow up/Referrals: Fran Leroy II, MD [Staff Physician, Gastroenterology] - See instructions Ai Wagoner [Primary Care Provider, Medical] - See instructions Activity Restrictions/Add. Instructions Additional Instructions/Restrictions: Your symptoms today were completely resolved with administration of antacid medications no alternative explanation was found today therefore your symptoms are most likely on the spectrum of GERD/peptic ulcer disease. I recommend you follow-up closely with your psychiatric arnp to be considered for reevaluation for endoscopy/EGD. Please continue to take your symptomatic medications as prescribed. You may also continue to follow with your psychiatric arnp because of your history of cirrhosis. Clinical Impressions Clinical Impression: Abdominal pain, RUQ, Chronic pharyngitis, Cirrhosis Instructions Patient Instructions: DI for Acute Abdominal Pain Print Language Print Language: [place] Discharge ED Provider: Og Drake General Adult HPI General Chief complaint: Abdominal Pain Stated complaint: abd pain, sore throat Time Seen by Provider: 08/17/25 08:40 History of Present Illness HPI narrative: Patient is a 35-year-old gentleman who provides his history primarily through an official court interpreter who presents today with 2 complaints. 1 is that he had a sore throat for several months but with brought to the emergency department today was right upper quadrant pain has been constant for the last week. It is not associated with food that he knows of. Had his gallbladder removed 6 years ago has no other past medical history. Has been taking omeprazole at home without any significant improvement has not tried antacids etc. No nausea vomiting diarrhea etc. No hematemesis or melena etc. Related Data Previous Rx's ?Medication ?Instructions ?Recorded azithromycin 250 mg tablet See Rx Instructions PO .COM PLEX 5 08/15/24 (Zithromax Z-Olu) days #6 tabs benzonatate 100 mg capsule 100 mg PO TID PRN cough #30 caps 08/15/24 aluminum-mag hydroxide-simethicone 5 ml PO Q3H PRN dys pepsia #3,000 mL 08/17/25 200 mg-200 mg-20 mg/5 mL oral susp (Maalox Advanced) famotidine 20 mg tablet (Pepcid AC) 20 mg PO BID PRN a bdominal pain 2 08/17/25 weeks #28 tabs Allergies Allergy/AdvReac Type Severity Reaction Status Date / Time No Known Allergies Allergy Verified 08/04/24 10:00 [facility] Disclaimer: The information contained in this section may have been updated after the patient was seen, as this information can be updated by other users. Medical History (Updated 08/17/25 @ 11:22 by gO Drake MD) No significant past medical history Social History (System 08/04/24 @ 10:00 by Eleonora Turner) Smoking Status: Never smoker alcohol intake: current alcohol intake frequency: 3 or more drinks per day substance use type: denies use current occupational status: employed Travel in the last 8 weeks?: None Have you lived/traveled outside [place] in past 30 days?: No Contact w/someone who lives/traveled outside US past 30 days?: No Exposure to someone with infectious disease in past 14 days?: No Do you have a fever (greater than 100.4 F or 38 C)?: No Have you tested positive for COVID-19?: No Exposed to someone with COVID-19 in past 14 days?: No Do you have a sore throat?: No Do you have a cough?: No Do you have any weakness?: No Do you have any diarrhea?: No Are you experiencing any unusual bleeding?: No Do you have any muscle aches/pain?: No Do you have any abdominal pain?: No Are you experiencing loss of taste or smell?: No Other Medical History Have you received the Flu Vaccine for this season: Yes Have you received the Pneumonia Vaccine: No ROS Obtained: Yes All systems reviewed & no additional complaints except as documented Physical Exam General General appearance: alert and in no apparent distress ENT ENT exam: Present other (Posterior oropharynx appears normal no erythema no exudates soft tissues appear normal) Respiratory Respiratory exam: Present normal lung sounds bilaterally Cardiovascular Cardiovascular exam: Present regular rate and normal rhythm Abdominal Exam Abdominal exam: Present soft and tenderness (Patient has tenderness in the epigastric and right upper quadrant regions); Absent distention Neurological Exam Neurological exam: Present alert and oriented X3 Medical Decision Making Medical Records Screening: Per USPSTF and CDC recommendations, given the prevalence of disease in our region, it is our hospital?s policy to screen for HIV and viral Hepatitis for all patients aged 18 and over and those with ongoing risk factors. Juan F Inquiry Pt receiving controlled substance: No Vital Signs: 08/17/25 08:42 08/17/25 09:00 08/17/25 09:00 Temperature 98.4 F Temperature Source Oral Pulse Rate 88 Pulse Rate [Right Radial] 86 Respiratory Rate 15 Blood Pressure 128/83 122/77 Blood Pressure [Right Arm] 153/103 H Blood Pressure Mean 92 Blood Pressure Mean [Right Arm] 119 Blood Pressure Source [Right Arm] Automatic Cuff Blood Pressure Position [Right Arm] Supine 02 Sat by Pulse Oximetry 96 94 L Oxygen Delivery Method Room Air 08/17/25 09:05 08/17/25 09:10 08/17/25 09:15 Temperature Temperature Source Pulse Rate 88 85 85 Pulse Rate [Right Radial] Respiratory Rate 16 15 Blood Pressure 122/83 132/86 127/78 Blood Pressure [Right Arm] Blood Pressure Mean Blood Pressure Mean [Right Arm] Blood Pressure Source [Right Arm] Blood Pressure Position [Right Arm] 02 Sat by Pulse Oximetry 95 97 95 Oxygen Delivery Method Room Air Room Air 08/17/25 09:20 08/17/25 09:25 08/17/25 09:30 Temperature Temperature Source Pulse Rate 86 81 87 Pulse Rate [Right Radial] Respiratory Rate 17 16 15 Blood Pressure 130/82 124/77 122/77 Blood Pressure [Right Arm] Blood Pressure Mean Blood Pressure Mean [Right Arm] Blood Pressure Source [Right Arm] Blood Pressure Position [Right Arm] 02 Sat by Pulse Oximetry 95 95 96 Oxygen Delivery Method Room Air Room Air 08/17/25 09:35 08/17/25 09:55 08/17/25 10:03 Temperature Temperature Source Pulse Rate 90 94 H 98 H Pulse Rate [Right Radial] Respiratory Rate 16 Blood Pressure 123/79 131/79 123/69 Blood Pressure [Right Arm] Blood Pressure Mean Blood Pressure Mean [Right Arm] Blood Pressure Source [Right Arm] Blood Pressure Position [Right Arm] 02 Sat by Pulse Oximetry 95 97 96 Oxygen Delivery Method 08/17/25 10:05 08/17/25 10:10 08/17/25 10:15 Temperature Temperature Source Pulse Rate 94 H 92 H 105 H Pulse Rate [Right Radial] Respiratory Rate Blood Pressure 133/81 129/87 121/84 Blood Pressure [Right Arm] Blood Pressure Mean Blood Pressure Mean [Right Arm] Blood Pressure Source [Right Arm] Blood Pressure Position [Right Arm] 02 Sat by Pulse Oximetry 95 96 98 Oxygen Delivery Method 08/17/25 10:20 08/17/25 10:25 08/17/25 10:30 Temperature Temperature Source Pulse Rate 87 111 H 89 Pulse Rate [Right Radial] Respiratory Rate Blood Pressure 130/79 140/83 121/79 Blood Pressure [Right Arm] Blood Pressure Mean Blood Pressure Mean [Right Arm] Blood Pressure Source [Right Arm] Blood Pressure Position [Right Arm] 02 Sat by Pulse Oximetry 97 94 L 98 Oxygen Delivery Method 08/17/25 10:35 08/17/25 10:40 08/17/25 10:45 Temperature Temperature Source Pulse Rate 89 90 90 Pulse Rate [Right Radial] Respiratory Rate Blood Pressure 125/78 125/79 122/78 Blood Pressure [Right Arm] Blood Pressure Mean Blood Pressure Mean [Right Arm] Blood Pressure Source [Right Arm] Blood Pressure Position [Right Arm] 02 Sat by Pulse Oximetry 97 93 L 95 Oxygen Delivery Method 08/17/25 10:50 08/17/25 10:55 08/17/25 11:11 Temperature Temperature Source Pulse Rate 75 91 H 83 Pulse Rate [Right Radial] Respiratory Rate Blood Pressure 112/74 128/85 137/86 Blood Pressure [Right Arm] Blood Pressure Mean Blood Pressure Mean [Right Arm] Blood Pressure Source [Right Arm] Blood Pressure Position [Right Arm] 02 Sat by Pulse Oximetry 91 L 99 98 Oxygen Delivery Method 08/17/25 11:15 Temperature Temperature Source Pulse Rate 78 Pulse Rate [Right Radial] Respiratory Rate Blood Pressure 135/85 Blood Pressure [Right Arm] Blood Pressure Mean Blood Pressure Mean [Right Arm] Blood Pressure Source [Right Arm] Blood Pressure Position [Right Arm] 02 Sat by Pulse Oximetry 98 Oxygen Delivery Method Lab Data Lab results reviewed: Yes I reviewed the patient's lab results. Lab Results 08/17/25 08:40: Urine Color Yellow, Urine Appearance Clear, Urine pH 6.5, Ur Specific [place] 1.020, Urine Protein Negative, Urine Glucose (UA) Negative, Urine Ketones Negative, Urine Blood Negative, Urine Nitrate Negative, Urine Bilirubin Negative, Urine Urobilinogen 0.2, Ur Leukocyte Esterase Negative, Urine RBC None, Urine WBC None, Ur Squamous Epith Cells None, Urine Bacteria Trace 08/17/25 08:55: WBC 7.7, RBC 5.27, Hgb 14.2, Hct 42.7, MCV 81.0, MCH 26.9 L, MCHC 33.3, RDW 12.7, Plt Count 195, MPV 10.6 H, Neut % (Auto) 57.4, Lymph % (Auto) 33.1, [place] % (Auto) 6.8, Eos % (Auto) 2.1, Baso % (Auto) 0.3, Neut # (Auto) 4.5, Lymph # (Auto) 2.6, [place] # (Auto) 0.5, Eos # (Auto) 0.2, Baso # (Auto) 0.0, Sodium 139, Potassium 3.9, Chloride 105, Carbon Dioxide 26, Anion Gap 11.9, BUN 12, Creatinine 0.70, Estimated Creat Clear 198, Estimated GFR 128, Est GFR ( Amer) 155, Glucose 121 H, Calcium 9.6, Total Bilirubin 0.6, AST 46, ALT 74, Alkaline Phosphatase 133 H, Total Protein 7.6, Albumin 4.6, Globulin 3.0, Albumin/Globulin Ratio 1.5, Lipase 104, HCV Ab DYLON w/Rflx PCR Qn Negative, HIV Ag/Ab Combo Qual Negative 08/17/25 08:55 08/17/25 08:55 Orders (Tests/Meds): ED MEDICATIONS Generic Name Dose Route Start Last Admin Trade Name Freq PRN Reason Stop Dose Admin Sodium Chloride 8 ml 08/17/25 08:49 08/17/25 08:58 Sodium Chloride 0.9% 10ml Vial IV 09/16/25 08:48 8 ml NEEDED PRN Administration dilute pepcid Sodium Chloride 10 ml 08/17/25 09:55 08/17/25 09:55 Sodium Chloride 0.9% 10ml Syr (Rad Only) IV 09/16/25 09:54 10 ml NEEDED PRN Administration Maintain IV Site Discontinued Medications Generic Name Dose Route Start Last Admin Trade Name Dengq PRN Reason Stop Dose Admin Belladonna Alkaloids 60 ml 08/17/25 08:49 08/17/25 08:58 Belladonna Alkaloids 60 Ml Ml PO 08/17/25 08:50 60 ml ONCE ONE Administration Famotidine 20 mg 08/17/25 08:49 08/17/25 08:58 Famotidine 20mg/2ml Vial IV 08/17/25 08:50 20 mg ONCE ONE Administration Lactated Ringer's 1,000 mls @ 999 mls/hr 08/17/25 09:00 08/17/25 10:20 Lactated Ringer's 1000 Ml Bag IV 08/17/25 10:00 Infused .Q1H1M TEODORA Infusion Iopamidol 75 ml 08/17/25 09:55 08/17/25 09:56 Iopamidol-370 (76%);100ml Bottle IV 08/17/25 09:56 75 ml ONCE ONE Administration ORDERS Category Date Time Status CT abdomen pelvis w con Stat Cat Scan 08/17/25 08:53 Taken CBC w/Auto Diff [Complete Blood Count Auto Diff] Stat Lab 08/17/25 08:55 Completed CMP [Comprehensive Metabolic Panel] Stat Lab 08/17/25 08:55 Completed HIV Combo Stat Lab 08/17/25 08:55 Completed Hepatitis C Ab Qual. W/ RFX Stat Lab 08/17/25 08:55 Completed Lipase Stat Lab 08/17/25 08:55 Completed UA [Urinalysis and Microscopic] Stat Lab 08/17/25 08:40 Completed Medical Decision Narrative: Patient with above history and physical posterior pharynx looks normal with his chronic pharyngitis and his history of GERD and right upper quadrant abdominal discomfort it is possible that patient has esophagitis that is associated with this pharyngitis and symptoms are on the spectrum of peptic ulcer disease/GERD. Will obtain a CT scan to evaluate for pathology such as perforations, malignancy, pancreatitis, etc. IV fluids GI cocktail Pepcid have been administered and will reassess. Reassessment 1122 patient felt completely better including his throat discomfort after the administration of GI cocktail and Pepcid. This suggest that all of his symptoms are on the spectrum of GERD/peptic ulcer disease. 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 He will continue to follow with gastroenterology and follow back up with him for possibility of reassessment for EGD but he does state that he had 1 within the last 6 months. He has been prescribed Pepcid and Maalox and will follow-up outpatient return precautions of his eyes he was discharged in improved and stable condition. Critical Care Critical Care Time Critical Care Time: No
--- NOTE | 2025-08-17 08:53 | CT_ITS ---
FINAL REPORT TECHNIQUE: Thin section axial images are obtained through the abdomen and pelvis after intravenous contrast. Reconstruction images were obtained from the axial data. Exam was performed using dose reduction techniques. This study was performed with techniques to keep radiation doses as low as reasonably achievable (ALARA). Individualized dose reduction techniques using automated exposure control or adjustment of mA and/or kV according to the patient's size were employed. CLINICAL HISTORY: RUQ/epigastric abd pain COMPARISON: 02/07/2022 FINDINGS: LUNG BASES: Lung bases are clear. Heart size is normal. LIVER: The liver is nodular in appearance consistent with cirrhosis. Again noted is a recanalized paraumbilical vein. No focal lesion. No ascites is present. GALLBLADDER/BILIARY SYSTEM: The gallbladder has been surgically resected. No biliary dilatation. SPLEEN: Unremarkable. PANCREAS: Unremarkable. ADRENALS: Unremarkable. KIDNEYS/URETERS/BLADDER: No hydronephrosis, renal mass, or renal stone. Unremarkable urinary bladder. GI TRACT: No small bowel obstruction or dilatation. Normal appendix. No acute colon abnormality. PELVIC ORGANS: Unremarkable for age. LYMPH NODES/RETROPERITONEUM/MESENTERY: No lymphadenopathy. No abdominal aortic aneurysm. ABDOMINAL WALL: There are small fat-containing left inguinal and umbilical hernias. FREE FLUID: No ascites. BONES: No acute osseous abnormality. IMPRESSION: 1. No acute abnormality of the abdomen or pelvis. 2. A nodular liver is once again noted, consistent with cirrhosis. There is no evidence of ascites. Reviewed, Interpreted and Dictated by Carolyn Martinez MD Transcribed by Rosemary Cano Authenticated and [facility]
[2025-08-17] MEDS: SODIUM CHLORIDE 0.9% 10ML VIAL 8 ML IV (08:58)
[2025-08-17] MEDS: FAMOTIDINE 20MG/2ML VIAL 20 MG IV (08:58)
[2025-08-17] MEDS: BELLADONNA ALKALOIDS 60 ML ML PO (08:58)
[2025-08-17] MEDS: LACTATED RINGERS 1000ML 1,000 ML 999 ML IV (08:59)
[2025-08-17 09:01] LABS: Hematocrit 42.7 % (42.0-52.0); Hemoglobin 14.2 g/dL (14.1-18.0); Immature Granulocytes % 0.3 %; Mean Corpuscular HGB Conc 33.3 g/dL (31.8-35.4); Mean Corpuscular Hemoglobin 26.9 pg (27.0-31.2); Mean Corpuscular Volume 81.0 fl (80-94); Nucleated Red Blood Cells % 0 %; Platelet Count 195 K/mm3 (142-424); Red Blood Count 5.27 M/mm3 (4.60-6.20); Red Cell Distribution Width-SD 37.3 fL; White Blood Count 7.7 K/mm3 (4.8-10.8)
[2025-08-17 09:04] LABS: Bacteria,Urine Trace /lpf
[2025-08-17 09:20] LABS: Albumin Level 4.6 g/dl (3.5-5.0); Chloride 105 mmol/L (98-107); Potassium 3.9 mmoL/L (3.5-5.1); Sodium 139 mmol/L (136-145)
[2025-08-17 09:23] LABS: Alanine Aminotransferase 74 U/L (12-78); Albumin/Globulin Ratio 1.5 (1.1-1.8); Alkaline Phosphatase 133 U/L (38-126); Anion Gap 11.9 mEq/L (5-15); Aspartate Amino Transferase 46 U/L (17-59); Bilirubin,Total 0.6 mg/dl (0.2-1.3); Blood Urea Nitrogen 12 mg/dl (9-20); Calcium 9.6 mg/dl (8.4-10.2); Carbon Dioxide 26 mmol/L (22.0-30.0); Creatinine Clearance Estimated 198 mL/min (50-200); Creatinine,Serum 0.70 mg/dl (0.66-1.25); Estimated Glomerular Filt Rate 128 ml/min (>60); GFR (African American) 155 ML/MIN (>60); Globulin 3.0 g/dL (1.3-3.2); Glucose 121 mg/dl (74-100); Lipase 104 U/L (23-300); Total Protein,Serum 7.6 g/dl (6.3-8.2)
[2025-08-17] MEDS: SODIUM CHLORIDE 0.9% 10ML SYR (RAD ONLY) 10 ML IV (09:55)
[2025-08-17] MEDS: IOPAMIDOL-370 (76%);100ML BOTTLE 75 ML IV (09:56)
--- NOTE | 2025-08-17 09:57 | PC.NURSE ---
patient ambulated to bathroom.
[2025-08-17 10:12] LABS: Hepatitis C Ab Qual. W/ RFX NEGATIVE (Negative)
== END 2025-08-17 11:35 | disposition home or self-care (01) ==
PROVIDERS: Emergency Provider Student in an Organized Health Care Education/Training Program; PCP Psychiatry & Neurology Neurology
DX: R10.11 Right upper quadrant pain (principal); J31.2 Chronic pharyngitis; K70.30 Alcoholic cirrhosis of liver without ascites; F10.11 Alcohol abuse, in remission
CPT/HCPCS: 74177; 80053; 81001; 83690; 85025; 86803; 87389; 96361; 96374; 99284; 99285; J1308; J7120; Q9967